=== PATIENT | female | born 1935 | race Caucasian/White ===

== ENCOUNTER 2017-11-10 00:15 | Emergency (ER) | payer MEDICARE, OTHER ==
[~2017-11-10] VITALS: Ht 165.1 cm; Wt 63.5 kg
[~2017-11-10 00:15] MED LIST: AMLO10TA2 PO; DOCU250C30 PO; FLUT16SP2 NS; HYDR25TA4 PO; LISI40TA4 PO; LORA1TAB PO; LUBI24CA5 PO; MIRT45TA6 PO; MULT-1094 PO; SERT100T12 PO; TEMA15CA PO; TRAZ150T75 PO; VENL75TA4 PO; ZOLP5TAB2 PO
--- NOTE | 2017-11-10 00:35 | NUR ---
PT BBRA 860 C/C MECHANICAL GLF WHILE WALKING TO RESTROOM HITTING R SIDE OF FACE, BRUISING NOTED ON R SIDE OF FACE. +KO. +DIZZINESS. +BLURRED VISSION.-N/V. PT STATES SHE HAS BEEN HAVING DIARRHEA X4 DAYS. PT STATES "MY BACK AND NECK ALSO HURT". PT STATES FACIAL PAIN 8/10 NON RADIATING. SKIN WNL. PT DENIES BEING ON BLOOD THINNERS. NO S/S OF ACUTE DISTRESS NOTED. PT PLACED ON ASSOCIATE PROFESSOR OF KINESIOLOGY AND POX. RESP EVEN AND UNLABORED. PT SAFETY AND COMFORT MEAUSRES IN PLACE. MD BEDSIDE FOR EVAL
[2017-11-10] MEDS ORDERED: ESOM40CA PO (00:45)
[2017-11-10] MEDS ORDERED: CLON0.1T PO (00:45)
[2017-11-10] MEDS ORDERED: LORA0.5T PO (00:45)
[2017-11-10] MEDS ORDERED: SUCR1TAB31 PO (00:45)
[2017-11-10] MEDS ORDERED: OXYB10TA PO (00:45)
[2017-11-10] MEDS ORDERED: ATOR10TA PO (00:45)
[2017-11-10] MEDS ORDERED: VENL75CA62 PO (00:45)
[2017-11-10] MEDS ORDERED: VENL150T PO (00:45)
[2017-11-10] MEDS ORDERED: PHEN28OI6 RC (00:45)
[2017-11-10] MEDS ORDERED: TRAZ-214 PO (00:45)
[2017-11-10] MEDS ORDERED: POTA20TA83 PO (00:45)
[2017-11-10] MEDS ORDERED: LEVE500T9 PO (00:45)
[2017-11-10] MEDS ORDERED: CETI10TA14 PO (00:45)
[2017-11-10] MEDS ORDERED: BISA-79 PO (00:45)
[2017-11-10] MEDS ORDERED: ONDA4TAB10 PO (00:45)
[2017-11-10] MEDS ORDERED: PSYL575P5 PO (00:45)
--- NOTE | 2017-11-10 00:49 | NUR ---
PT TO CT
[2017-11-10 00:52] LABS: EOSINOPHILS % (AUTO) 1.8 % (0.0-6.0); HEMATOCRIT 36 % (33-45); HEMOGLOBIN 11.9 g/dL (11.5-14.8); LYMPHOCYTES # (AUTO) 1.4 /CMM (0.8-4.8); LYMPHOCYTES % (AUTO) 20.4 % (20.0-44.0); MEAN CORPUSCULAR HEMOGLOBIN 30 PG (26.0-33.0); MEAN CORPUSCULAR HGB CONC 33 g/dl (31.0-36.0); MEAN CORPUSCULAR VOLUME 92 fL (82-100); MONOCYTES # (AUTO) 0.4 /CMM (0.1-1.30); MONOCYTES % (AUTO) 5.6 % (2.0-12.0); NEUTROPHILS % (AUTO) 72.2 % (43.0-81.0); PLATELET COUNT (AUTO) 329 /CMM (150-450); RDW COEFFICIENT OF VARIATION 14.5 (11.5-15.0); RED BLOOD CELL COUNT(AUTO) 3.93 MIL/uL (4.0-5.2); WHITE BLOOD COUNT (AUTO) 6.9 K/uL (4.3-11.0)
[2017-11-10] MEDS ORDERED: IV NS 0.9% 1,000 ML BAG IV ONE (01:00)
[2017-11-10 01:04] LABS: CALCIUM, SERUM 8.1 mg/dL (8.5-10.1); CARBON DIOXIDE 25 mmol/L (21-32); CHLORIDE 106 mmol/L (98-107); CREATININE 0.8 mg/dL (0.6-1.3); GLUCOSE 91 mg/dL (74-106); SODIUM SERUM 139 mmol/L (136-145); UREA NITROGEN, BLOOD 10 mg/dL (7-18)
[2017-11-10 01:05] LABS: POTASSIUM 2.8 mmol/L (3.5-5.1)
[2017-11-10] MEDS ORDERED: POTASSIUM CHLORIDE 20 MEQ TAB.PRT.SR PO ONE ×2 (01:25→01:30)
--- NOTE | 2017-11-10 01:42 | NUR ---
PT UNABLE TO GIVE URINE SAMPLE. PT REFUSED GARCIA CATH. MADE AWARE
[2017-11-10 02:18] LABS: APPEARANCE,URINE CLEAR (CLEAR); BILIRUBIN,URINE NEGATIVE (NEGATIVE); BLOOD, URINE NEGATIVE Ery/uL (NEGATIVE); COLOR,URINE YELLOW (YELLOW); KETONES,URINE 1+ (NEGATIVE); LEUKOCYTE ESTERASE ,URINE NEGATIVE (NEGATIVE); NITRITE, URINE NEGATIVE (NEGATIVE); PROTEIN,URINE NEGATIVE (NEGATIVE); UGLUCOSE NEGATIVE (NEGATIVE); UROBILINOGEN,URINE 0.2 EU/dL (0.2)
[2017-11-10 02:21] LABS: BACTERIA,URINE None seen /HPF (None Seen); RBC,URINE NONE SEEN /HPF (0-2); WBC,URINE 0-2 /HPF (0-3)
[2017-11-10 02:22] LABS: SQUAMOUS EPITHELIAL CELL,UR Few /HPF (None Seen)
--- NOTE | 2017-11-10 02:55 | NUR ---
report called to [facility]. pt's facility aware of pt going back.
--- NOTE | 2017-11-10 03:01 | NUR ---
[facility] CREW BEDSIDE. REPORT GIVEN TO EMS. PT BEING TRASNFERRED ONTO [facility] GURNEY. NO S/S OF DISTRESS UPON DISCHARGE
--- NOTE | 2017-11-10 03:03 | NUR ---
Patient discharged to home in stable condition. Written and verbal after care instructions given. Patient verbalizes understanding of instruction.IV removed. Catheter intact and site benign. Pressure and 4x4 applied to site. No bleeding noted.
[2017-11-10 03:07] VITALS: BP 135/80
== END 2017-11-10 03:02 | disposition home or self-care (01) ==
LOC: ER 00:17
DX: S09.8XXA Other specified injuries of head, initial encounter (principal); I10 Essential (primary) hypertension; M85.80 Other specified disorders of bone density and structure, unspecified site; M19.90 Unspecified osteoarthritis, unspecified site; F41.9 Anxiety disorder, unspecified; F32.9 Major depressive disorder, single episode, unspecified; E78.00 Pure hypercholesterolemia, unspecified; Z90.89 Acquired absence of other organs; Z98.890 Other specified postprocedural states; Z88.8 Allergy status to other drugs, medicaments and biological substances; Z79.899 Other long term (current) drug therapy; W18.39XA Other fall on same level, initial encounter; Y93.01 Activity, walking, marching and hiking; Y92.89 Other specified places as the place of occurrence of the external cause; Y99.8 Other external cause status
CPT/HCPCS: 36415; 70450; 70486; 72125; 80048; 81001; 85025; 87086; 99285; A4606; J7030; 81000-TC; Z7610

== ENCOUNTER 2017-12-09 04:21 | Inpatient (IN) | payer MEDICARE, OTHER ==
[~2017-12-09] VITALS: Ht 165.1 cm; Wt 55.0 kg
[~2017-12-09 04:21] MED LIST changes: +ATOR10TA PO; +BISA-79 PO; +CETI10TA14 PO; +CLON0.1T PO; +ESOM40CA PO; -HYDR25TA4 PO; +LEVE500T9 PO; +LORA0.5T PO; +ONDA4TAB10 PO; +OXYB10TA PO; +PHEN28OI6 RC; +POTA20TA83 PO; +PSYL575P5 PO; +SUCR1TAB31 PO; +TRAZ-214 PO; -TRAZ150T75 PO; +VENL150T PO; +VENL75CA62 PO; -VENL75TA4 PO; -ZOLP5TAB2 PO
[2017-12-09 05:00] VITALS: BP 171/99
[2017-12-09] MEDS ORDERED: ONDANSETRON HCL/PF 4 MG/2 ML VIAL IV PRN (05:30)
[2017-12-09] MEDS: IV NS 0.9% 1,000 ML IV PRN ×2 (05:53→17:39)
[2017-12-09] MEDS: PANTOPRAZOLE 40 MG VIAL IV SCH (05:53)
[2017-12-09] MEDS: MORPHINE SULFATE INJ 4 MG/ML DISP.SYRIN IV PRN ×2 (05:54→09:50)
--- NOTE | 2017-12-09 07:30 | NUR ---
MS/RN Patient received Patient received from mini shifter, sleeping at this time, appears in no distress. Sitter at bedside due to 51/50 hold. Will continue to monitor and ensure safety.
[2017-12-09] MEDS ORDERED: CLONIDINE HCL 0.1 MG TABLET PO PRN (10:00)
--- NOTE | 2017-12-09 10:00 | NUR ---
MS/RN S/B Dr Perez Seen by Dr Perez - routine labs ordered.
[2017-12-09] MEDS ORDERED: ACETAMINOPHEN 325 MG TABLET PO PRN (10:30)
[2017-12-09] MEDS ORDERED: MAGNESIUM HYDROXIDE 30 ML UDC PO PRN (10:30)
[2017-12-09] MEDS ORDERED: Z GUARD REMEDY 2 OZ OINT TP PRN (10:30)
[2017-12-09] MEDS ORDERED: ONDANSETRON HCL/PF 4 MG/2 ML VIAL IVP PRN (10:30)
[2017-12-09] MEDS ORDERED: MAG HYDROX/AL HYDROX/SIMETH 30 ML UDC PO PRN (10:30)
[2017-12-09] MEDS: DOCUSATE SODIUM 100 MG CAPSULE PO SCH ×2 (10:56→17:39)
[2017-12-09] MEDS: AMLODIPINE BESYLATE 10 MG TABLET PO SCH (10:59)
[2017-12-09] MEDS: LISINOPRIL (20MG) 20 MG TABLET PO SCH (11:01)
[2017-12-09] MEDS ORDERED: ONDANSETRON 4 MG TAB.RAPDIS PO PRN (11:30)
[2017-12-09] MEDS ORDERED: PHENYLEPHRINE/SHK LV/MO/PET,WH 30 GM TUBE RC PRN (11:30)
[2017-12-09] MEDS ORDERED: NITR100C15 PO (11:39)
--- NOTE | 2017-12-09 12:00 | NUR ---
MS/shove up contact information Taran (son) -
[2017-12-09] MEDS ORDERED: SUCRALFATE 1 G TABLET PO SCH (13:00)
[2017-12-09] MEDS ORDERED: BISACODYL (5 MG) 5 MG TABLET.DR PO SCH (17:00)
[2017-12-09] MEDS ORDERED: FLUTICASONE PROPIONATE 16 GM BOTTLE NS SCH (17:00)
--- NOTE | 2017-12-09 18:09 | NUR ---
MS/RN End note Patient remains in stable condition, all needs attended. Sitter at bedside for safety.
[2017-12-09 19:40] VITALS: BP 132/68
--- NOTE | 2017-12-09 19:57 | NUR ---
RECIEVED PT ALERT AND ORIENTATED SPEECH CLEAR MOVING ALL EXTREMITIES IV INFUSING RIGHT ARM GOOD EYE CONTACT SPEECH CLEAR MOVING ALL EXTREMITIES
[2017-12-09] MEDS: TEMAZEPAM 15 MG CAPSULE PO SCH (21:29)
[2017-12-09] MEDS: TRAZODONE 50 MG TABLET PO SCH (21:29)
[2017-12-09] MEDS: MIRTAZAPINE 15 MG TABLET PO SCH (21:30)
[2017-12-09] MEDS: ARIPIPRAZOLE 5 MG TABLET PO SCH (21:30)
[2017-12-09] MEDS: LEVETIRACETAM (250 MG) 250 MG TABLET PO SCH (21:30)
[2017-12-09] MEDS ORDERED: MIRTAZAPINE SOLUTAB 45 MG/UDTABLET TAB.RAPDIS PO SCH (22:00)
[2017-12-09] MEDS ORDERED: ATORVASTATIN 10 MG TABLET PO SCH (22:00)
[2017-12-10] MEDS: PANTOPRAZOLE 40 MG VIAL IV SCH (05:28)
[2017-12-10] MEDS: IV NS 0.9% 1,000 ML IV PRN (05:29)
--- NOTE | 2017-12-10 05:57 | NUR ---
ENDING NOTES SITTER AT THE BEDSIDE THIS 12HOURS FOR HER SAFETY. AROPUSES EASILY AND ALERT SPEECH CLEAR. EREQUENTLY SMILING SHE IS COOPERATIVE
[2017-12-10 07:00] LABS: BASOPHILS % (AUTO) 0.3 % (0.0-2.0); EOSINOPHILS % (AUTO) 2.1 % (0.0-6.0); HEMATOCRIT 37 % (33-45); HEMOGLOBIN 12.1 g/dL (11.5-14.8); LYMPHOCYTES # (AUTO) 1.9 /CMM (0.8-4.8); LYMPHOCYTES % (AUTO) 17.3 % (20.0-44.0); MEAN CORPUSCULAR HEMOGLOBIN 30 PG (26.0-33.0); MEAN CORPUSCULAR HGB CONC 33 g/dl (31.0-36.0); MEAN CORPUSCULAR VOLUME 92 fL (82-100); MONOCYTES # (AUTO) 0.7 /CMM (0.1-1.30); MONOCYTES % (AUTO) 5.8 % (2.0-12.0); NEUTROPHILS # (AUTO) 8.3 /CMM (1.8-8.9); NEUTROPHILS % (AUTO) 74.5 % (43.0-81.0); PLATELET COUNT (AUTO) 348 /CMM (150-450); RED BLOOD CELL COUNT(AUTO) 4.01 MIL/uL (4.0-5.2); WHITE BLOOD COUNT (AUTO) 11.1 K/uL (4.3-11.0)
[2017-12-10 07:31] LABS: CALCIUM, SERUM 8.6 mg/dL (8.5-10.1); CARBON DIOXIDE 24 mmol/L (21-32); CHLORIDE 106 mmol/L (98-107); CREATININE 0.6 mg/dL (0.6-1.3); GLUCOSE 95 mg/dL (74-106); MAGNESIUM 1.4 mg/dL (1.8-2.4); PHOSPHORUS 3.8 mg/dL (2.5-4.9); POTASSIUM 3.4 mmol/L (3.5-5.1); SODIUM SERUM 142 mmol/L (136-145); UREA NITROGEN, BLOOD 10 mg/dL (7-18)
[2017-12-10 08:00] VITALS: BP 151/53
--- NOTE | 2017-12-10 08:21 | NUR ---
RN NOTES PATIENT A/OX3, VERBALLY RESPONSIVE, NO DISTRESS NOTED, PATIENT REFUSING TO EAT HER CLEAR LIQUID, PATIENT DID C/O BURNING WHILE URINATING, WILL INFORM MD. NEEDS ATTENDED, SITTER AT BEDSIDE, CALL LIGHT WITHIN REACH, WILL CONTINUE TO MONITOR.
[2017-12-10] MEDS ORDERED: cetrizine 10 MG TABLET PO SCH (09:00)
[2017-12-10] MEDS ORDERED: POTASSIUM CHLORIDE 20 MEQ TAB.PRT.SR PO SCH ×2 (09:00→12:00)
[2017-12-10] MEDS ORDERED: OXYBUTYNIN CHLORIDE ER 5 MG TAB PO SCH (09:00)
[2017-12-10] MEDS ORDERED: LORAZEPAM 0.5 MG TABLET PO PRN (09:00)
[2017-12-10] MEDS ORDERED: Medication Not On Formulary EA (Esomeprazole Mag Trihydrate (Nexium) 40 MG) PO SCH (09:00)
[2017-12-10] MEDS ORDERED: VENLAFAXINE XR 75 MG CAP.SR.24H PO SCH (09:00)
[2017-12-10] MEDS ORDERED: MULTIVIT, IRON, MIN NO. 8, FA 1 TAB PO SCH (09:00)
[2017-12-10] MEDS: PSYLLIUM SEED 1 PKT PACKET PO SCH (09:00)
[2017-12-10] MEDS: DOCUSATE SODIUM 100 MG CAPSULE PO SCH ×2 (09:44→16:57)
[2017-12-10] MEDS: LISINOPRIL (20MG) 20 MG TABLET PO SCH (09:45)
[2017-12-10] MEDS: AMLODIPINE BESYLATE 10 MG TABLET PO SCH (09:45)
[2017-12-10] MEDS: LEVETIRACETAM (250 MG) 250 MG TABLET PO SCH ×2 (09:45→22:09)
[2017-12-10] MEDS: Magnesium 1GM/D5W 100ML PREMIX 100 ML IV SCH ×4 (12:19→15:28)
[2017-12-10 12:56] LABS: APPEARANCE,URINE SL CLOUDY (CLEAR); BILIRUBIN,URINE 1+ (NEGATIVE); BLOOD, URINE TRACE Ery/uL (NEGATIVE); COLOR,URINE YELLOW (YELLOW); KETONES,URINE 2+ (NEGATIVE); LEUKOCYTE ESTERASE ,URINE NEGATIVE (NEGATIVE); NITRITE, URINE NEGATIVE (NEGATIVE); PROTEIN,URINE 1+ mg/dl (NEGATIVE); UGLUCOSE NEGATIVE (NEGATIVE); UROBILINOGEN,URINE 0.2 EU/dL (0.2)
[2017-12-10 13:07] LABS: BACTERIA,URINE Rare /HPF (None Seen); SQUAMOUS EPITHELIAL CELL,UR Few /HPF (None Seen)
[2017-12-10] MEDS ORDERED: POTASSIUM CHLORIDE 20 MEQ POWDER PACKET PO SCH (14:30)
[2017-12-10 18:18] VITALS: BP 142/77
--- NOTE | 2017-12-10 18:47 | NUR ---
RN NOTES PATIENT A/OX1, BREATHING EVEN AND UNLABORED, NO SOB NOTED, SKIN CARE RENDERED, IVF INFUSING AND TOLERATING WELL, CALL LIGHT WITHIN REACH, WILL ENDORSE TO BUTADIENE CONVERTER OPERATOR FOR MIKEY.
--- NOTE | 2017-12-10 19:15 | NUR ---
MS RN NOTES RECEIVED PT IN BED, ASLEEP AT THIS TIME, AROUSES EASILY, A/O X 4, VERBALLY RESPONSIVE. NO DISTRESS , NO SOB NOTED. RESPIRATION IS EVEN AND UNLABORED. SITTER AT BEDSIDE OR SAFETY, PT ON 5150 HOLD. IV SITE ON RFA INTACT AND PATENT, NO S/S OF INFILTRATION NOTED. IVF INFUSING WELL. NO C/O PAIN OR DISCOMFORT AT THIS TIME. SAFETY PRECAUTIONS OBSERVED. ALL NEEDS ATTENDED AND MET. WILL CONT TO MONITOR.
[2017-12-10 20:00] VITALS: BP 134/80
--- NOTE | 2017-12-10 21:29 | NUR ---
PT REFUSED SLEEPING PILL RESTORIL, PT VERBALIZED THAT SHE DOESN'T NEED IT, ALSO VERBALIZED " GO AWAY" , RISK AND BENEFITS EXPLAINED , PT STILL REFUSED X 3. WILL CONT TO MONITOR.
[2017-12-10] MEDS: TEMAZEPAM 15 MG CAPSULE PO SCH (22:00)
[2017-12-10] MEDS: ARIPIPRAZOLE 5 MG TABLET PO SCH (22:09)
[2017-12-10] MEDS: MIRTAZAPINE 15 MG TABLET PO SCH (22:10)
[2017-12-10] MEDS: SERTRALINE HCL 50 MG TABLET PO SCH (22:10)
[2017-12-10] MEDS: TRAZODONE 50 MG TABLET PO SCH (22:11)
[2017-12-11] MEDS: IV NS 0.9% 1,000 ML IV PRN (00:41)
[2017-12-11] MEDS: HYDROCODONE/APAP 5/325MG 1 EACH TABLET PO PRN ×2 (00:41→10:54)
[2017-12-11] MEDS: PANTOPRAZOLE 40 MG VIAL IV SCH (05:40)
--- NOTE | 2017-12-11 06:35 | NUR ---
MS RN CLOSING NOTES PT IN BED, RESTING COMFORTABLY, AROUSES EASILY, A/O X 4, VERBALLY RESPONSIVE. NO DISTRESS , NO SOB NOTED. RESPIRATION IS EVEN AND UNLABORED. PT ON 5150 HOLD, SITTER AT BEDSIDE FOR SAFETY. IV SITE ON RFA INTACT AND PATENT, NO S/S OF INFILTRATION NOTED. IVF INFUSING WELL. NO C/O PAIN OR DISCOMFORT AT THIS TIME. SAFETY PRECAUTIONS OBSERVED. ALL NEEDS ATTENDED AND MET. WILL ENDORSE TO NEXT SHIFT FOR MIKEY.
[2017-12-11 07:00] LABS: CALCIUM, SERUM 8.3 mg/dL (8.5-10.1); CARBON DIOXIDE 26 mmol/L (21-32); CHLORIDE 101 mmol/L (98-107); CREATININE 0.5 mg/dL (0.6-1.3); GLUCOSE 144 mg/dL (74-106); MAGNESIUM 1.5 mg/dL (1.8-2.4); POTASSIUM 3.1 mmol/L (3.5-5.1); SODIUM SERUM 138 mmol/L (136-145); UREA NITROGEN, BLOOD 5 mg/dL (7-18)
[2017-12-11] MEDS ORDERED: POTASSIUM CHLORIDE 20 MEQ TAB.PRT.SR PO ONE ×2 (07:30→09:00)
--- NOTE | 2017-12-11 07:45 | NUR ---
MS RN OPENING NOTES RECEIVED PT LAYING IN BED WITH HOB ELEVATED. PT IS ALERT AND RESPONSIVE. RESPIRATIONS ARE EVEN AND UNLABORED, NOT IN ANY ACUTE DISTRESS NOTED. NO FACIAL GRIMACING OR MOANING NOTED. IV ACCESS TO RFA INTACT, NO INFILTRATION NOTED FOR SAFETY. WILL CONTINUE TO MONITOR THROUGHOUT SHIFT FOR CONTINUITY OF CARE.
[2017-12-11] MEDS: LEVETIRACETAM (250 MG) 250 MG TABLET PO SCH ×2 (08:53→21:26)
[2017-12-11] MEDS: PSYLLIUM SEED 1 PKT PACKET PO SCH (08:53)
[2017-12-11] MEDS: LISINOPRIL (20MG) 20 MG TABLET PO SCH (08:53)
[2017-12-11] MEDS: AMLODIPINE BESYLATE 10 MG TABLET PO SCH (08:53)
[2017-12-11] MEDS: DOCUSATE SODIUM 100 MG CAPSULE PO SCH ×2 (08:53→16:22)
[2017-12-11] MEDS: Magnesium 1GM/D5W 100ML PREMIX 100 ML IV SCH ×2 (09:12→10:18)
--- NOTE | 2017-12-11 18:29 | NUR ---
MS RN CLOSING NOTES ALL DUE MEDS GIVEN, NEEDS MET AND RENDERED. PT IS ALERT AND RESPONSIVE, AFEBRILE. RESPIRATIONS ARE EVEN AND UNLABORED, NOT IN ANY ACUTE DISTRESS NOTED. PT DENIES ANY PAIN AT THIS TIME, NO C/O SOB, N/V. IV SITE TO RFA INTACT, NO INFILTRATION NOTED. DRESSING KEPT CLEAN AND DRY. REPOSITIONED PER PROTOCOL W/ SITTER AT BEDSIDE. SAFETY MEASURES ARE IN PLACE. WILL ENDORSE TO NEXT SHIFT FOR CONTINUITY OF CARE.
--- NOTE | 2017-12-11 19:18 | NUR ---
MS RN NOTES RECEIVED PT IN BED, ASLEEP AT THIS TIME, AROUSES EASILY, A/O X 2-3, VERBALLY RESPONSIVE. NO DISTRESS , NO SOB NOTED. RESPIRATION IS EVEN AND UNLABORED. SITTER AT BEDSIDE OR SAFETY. IV SITE ON RIGHT WRIST INTACT AND PATENT, NO S/S OF INFILTRATION NOTED. IVF INFUSING WELL. NO C/O PAIN OR DISCOMFORT AT THIS TIME. SAFETY PRECAUTIONS OBSERVED. ALL NEEDS ATTENDED AND MET. WILL CONT TO MONITOR. Addendum: 12/11/17 at 2035 by BUSTER YARBROUGH RN INCORRECT IV SITE DOCUMENTATION.
--- NOTE | 2017-12-11 19:18 | NUR ---
MS RN NOTES RECEIVED PT IN BED, ASLEEP AT THIS TIME, AROUSES EASILY, A/O X 2-3, VERBALLY RESPONSIVE. NO DISTRESS , NO SOB NOTED. RESPIRATION IS EVEN AND UNLABORED. SITTER AT BEDSIDE OR SAFETY. IV SITE ON RFA INTACT AND PATENT, NO S/S OF INFILTRATION NOTED. IVF INFUSING WELL. NO C/O PAIN OR DISCOMFORT AT THIS TIME. SAFETY PRECAUTIONS OBSERVED. ALL NEEDS ATTENDED AND MET. WILL CONT TO MONITOR.
[2017-12-11 20:00] VITALS: BP 147/95
[2017-12-11] MEDS: ARIPIPRAZOLE 5 MG TABLET PO SCH (21:24)
[2017-12-11] MEDS: TEMAZEPAM 15 MG CAPSULE PO SCH (21:24)
[2017-12-11] MEDS: MIRTAZAPINE 15 MG TABLET PO SCH (21:24)
[2017-12-11] MEDS: SERTRALINE HCL 50 MG TABLET PO SCH (21:25)
[2017-12-11] MEDS: TRAZODONE 50 MG TABLET PO SCH (21:26)
[2017-12-12] MEDS: PANTOPRAZOLE 40 MG VIAL IV SCH (05:44)
--- NOTE | 2017-12-12 06:31 | NUR ---
MS RN CLOSING NOTES PT IN BED, AWAKE, A/O X 2-3, VERBALLY RESPONSIVE. NO DISTRESS , NO SOB NOTED. RESPIRATION IS EVEN AND UNLABORED. SITTER AT BEDSIDE OR SAFETY. IV SITE ON RFA INTACT AND PATENT, NO S/S OF INFILTRATION NOTED. IVF INFUSING WELL. DENIES ANY PAIN OR DISCOMFORT AT THIS TIME. SAFETY PRECAUTIONS OBSERVED. ALL NEEDS ATTENDED AND MET. WILL ENDORSE TO EXT SHIFT FOR MIKEY.
--- NOTE | 2017-12-12 08:00 | NUR ---
RN NOTES PATIENT A/OX2-3, EATING BREAKFAST, SITTER AT BEDSIDE, NEEDS ATTENDED AND MET, CALL LIGHT WITHIN REACH, WILL CONTINUE TO MONITOR.
[2017-12-12 08:31] VITALS: BP 144/82
[2017-12-12] MEDS: DOCUSATE SODIUM 100 MG CAPSULE PO SCH ×2 (09:05→16:45)
[2017-12-12] MEDS: PSYLLIUM SEED 1 PKT PACKET PO SCH (09:05)
[2017-12-12] MEDS: LEVETIRACETAM (250 MG) 250 MG TABLET PO SCH (09:05)
[2017-12-12] MEDS: LISINOPRIL (20MG) 20 MG TABLET PO SCH (09:06)
[2017-12-12] MEDS: AMLODIPINE BESYLATE 10 MG TABLET PO SCH (09:06)
[2017-12-12 09:24] LABS: BASOPHILS # (AUTO) 0.1 /CMM (0.0-0.2); BASOPHILS % (AUTO) 0.5 % (0.0-2.0); EOSINOPHILS % (AUTO) 0.4 % (0.0-6.0); HEMATOCRIT 39 % (33-45); HEMOGLOBIN 12.5 g/dL (11.5-14.8); LYMPHOCYTES # (AUTO) 2.5 /CMM (0.8-4.8); LYMPHOCYTES % (AUTO) 16.7 % (20.0-44.0); MEAN CORPUSCULAR HEMOGLOBIN 29 PG (26.0-33.0); MEAN CORPUSCULAR HGB CONC 32 g/dl (31.0-36.0); MEAN CORPUSCULAR VOLUME 91 fL (82-100); MONOCYTES # (AUTO) 0.8 /CMM (0.1-1.30); MONOCYTES % (AUTO) 5.5 % (2.0-12.0); NEUTROPHILS # (AUTO) 11.7 /CMM (1.8-8.9); NEUTROPHILS % (AUTO) 76.9 % (43.0-81.0); PLATELET COUNT (AUTO) 382 /CMM (150-450); RDW COEFFICIENT OF VARIATION 15.7 (11.5-15.0); RED BLOOD CELL COUNT(AUTO) 4.28 MIL/uL (4.0-5.2); WHITE BLOOD COUNT (AUTO) 15.2 K/uL (4.3-11.0)
[2017-12-12 09:38] LABS: CALCIUM, SERUM 9.3 mg/dL (8.5-10.1); CARBON DIOXIDE 28 mmol/L (21-32); CHLORIDE 101 mmol/L (98-107); CREATININE 0.7 mg/dL (0.6-1.3); GLUCOSE 146 mg/dL (74-106); MAGNESIUM 1.8 mg/dL (1.8-2.4); PHOSPHORUS 3.2 mg/dL (2.5-4.9); POTASSIUM 3.9 mmol/L (3.5-5.1); SODIUM SERUM 138 mmol/L (136-145); UREA NITROGEN, BLOOD 10 mg/dL (7-18)
[2017-12-12] MEDS ORDERED: MIRT15TA PO (09:46)
[2017-12-12] MEDS ORDERED: ARIP5TAB10 PO (09:46)
[2017-12-12 16:55] VITALS: BP 134/78
--- NOTE | 2017-12-12 18:13 | NUR ---
ERECTING CRANE OPERATOR PATIENT A/OX2-3, SLEEPING BUT RESPONSIVE TO VERBAL STIMULI, PATIENT REFUSED TO EAT LUNCH. UA SENT TO LAB ORDERED BY DR. CROWDER. SKIN ASSESSMENT DONE, SKIN CLEAR AND INTACT, BELONGINGS RECONCILED AND COMPLETE, PATIENT IN NO DISTRESS, NO S/SX OF PAIN OR DISCOMCORT AT THIS TIME, PIV REMOVED, APPLIED GAUZE AND TAPE, ALL BELONGINGS TRANSFERRED TO GPS. PATIENT TRANSFERRED TO GPS VIA BED. REPORT GIVEN TO JESSE. Addendum: 12/12/17 at 1821 by CINDY TOSCANO RN ADDENDUM: INFORMED DR. TIRADO, PER DR. TIRADO UA WAS DONE AND WAS NEGATIVE. OK TO DISCHARGE PATIENT PER
[2017-12-12] MEDS ORDERED: PSYL1PAC8 PO (18:44)
[2017-12-12] MEDS ORDERED: ARIP10TA9 PO (18:44)
[2017-12-12] MEDS ORDERED: PANT40VI IV (18:44)
[2017-12-12] MEDS ORDERED: MORP4VIA IV (18:44)
[2017-12-12] MEDS ORDERED: MIRT7.5T10 PO (18:44)
[2017-12-12] MEDS ORDERED: ALLA266C2 TP (18:44)
[2017-12-12] MEDS ORDERED: ONDA4VIA30 IV (18:44)
[2017-12-12] MEDS ORDERED: HYDR-552 PO (18:44)
[2017-12-12] MEDS ORDERED: MAG30ORA PO (18:44)
[2017-12-12] MEDS ORDERED: MAGN400O6 PO (18:44)
[2017-12-12] MEDS ORDERED: ACET-868 PO (18:44)
== END 2017-12-12 18:10 | DRG 394 ==
LOC: MEDSG2 04:21
PROVIDERS: ADMIT Nurse Practitioner Acute Care; ATTEND Nurse Practitioner Acute Care
DX: K64.8 Other hemorrhoids (principal); E44.0 Moderate protein-calorie malnutrition; F33.2 Major depressive disorder, recurrent severe without psychotic features; E78.5 Hyperlipidemia, unspecified; F03.90 Unspecified dementia, unspecified severity, without behavioral disturbance, psychotic disturbance, mood disturbance, and anxiety; I10 Essential (primary) hypertension; K21.9 Gastro-esophageal reflux disease without esophagitis; G40.909 Epilepsy, unspecified, not intractable, without status epilepticus; F29 Unspecified psychosis not due to a substance or known physiological condition; M19.90 Unspecified osteoarthritis, unspecified site; E88.09 Other disorders of plasma-protein metabolism, not elsewhere classified; M62.50 Muscle wasting and atrophy, not elsewhere classified, unspecified site; M48.02 Spinal stenosis, cervical region; Z68.20 Body mass index [BMI] 20.0-20.9, adult; K57.30 Diverticulosis of large intestine without perforation or abscess without bleeding; K82.8 Other specified diseases of gallbladder
CPT/HCPCS: 36415; 76700-TC; 80048-TC; 81000-TC; 83735-TC; 84100-TC; 85025-TC; 87081-TC; C9113; J2270; J2405; J3475; J7030; Z7610

== ENCOUNTER 2017-12-12 18:31 | Inpatient (IN) | payer MEDICARE, OTHER ==
[~2017-12-12] VITALS: Ht 165.1 cm; Wt 53.5 kg
[~2017-12-12 18:31] MED LIST changes: -AMLO10TA2 PO; +AMLO10TA6 PO; +ARIP5TAB10 PO; -ATOR10TA PO; -BISA-79 PO; -CETI10TA14 PO; -CLON0.1T PO; -ESOM40CA PO; -FLUT16SP2 NS; -LORA1TAB PO; -LUBI24CA5 PO; +MIRT15TA PO; -MIRT45TA6 PO; -MULT-1094 PO; +NITR100C15 PO; -ONDA4TAB10 PO; -OXYB10TA PO; -PHEN28OI6 RC; -POTA20TA83 PO; -PSYL575P5 PO; -SUCR1TAB31 PO; -VENL150T PO; -VENL75CA62 PO
--- NOTE | 2017-12-12 18:38 | NUR ---
GPS/RN RECEIVED PT FROM 2W ON 525 NO ACUTE DISTRESS NOTED. PROPERTY CHECKED FOR CONTRABAND. NO SI OR HI AT THE TIME OF ADMISSION. DR CROWDER MADE AWARE OF ADMISSION WITH NEW ORDERS RECEIVED AND CARRIED OUT. WILL ENDORSE TO WEATHER REPORTER TO CONTINUE WITH ADMISSION.
[2017-12-12] MEDS ORDERED: ALLA266C2 TP (18:44)
[2017-12-12] MEDS ORDERED: ARIP10TA9 PO (18:44)
[2017-12-12] MEDS ORDERED: MORP4VIA IV (18:44)
[2017-12-12] MEDS ORDERED: PANT40VI IV (18:44)
[2017-12-12] MEDS ORDERED: ONDA4VIA52 IV (18:44)
[2017-12-12] MEDS ORDERED: MAG30ORA PO (18:44)
[2017-12-12] MEDS ORDERED: MAGN400O6 PO (18:44)
[2017-12-12] MEDS ORDERED: HYDR-552 PO (18:44)
[2017-12-12] MEDS ORDERED: ACET-868 PO (18:44)
[2017-12-12] MEDS ORDERED: MIRT7.5T10 PO (18:44)
[2017-12-12] MEDS ORDERED: PSYL1PAC8 PO (18:44)
--- NOTE | 2017-12-12 18:50 | NUR ---
DR. CROWDER MADE AWARE OF THE ADMISSION AND GAVE ORDERS.
[2017-12-12 18:54] VITALS: BP 148/79
[2017-12-12] MEDS ORDERED: TRAZODONE 50 MG TABLET PO PRN (19:00)
[2017-12-12] MEDS ORDERED: MAG HYDROX/AL HYDROX/SIMETH 30 ML UDC PO PRN ×2 (19:00→21:00)
[2017-12-12] MEDS ORDERED: MAGNESIUM HYDROXIDE 30 ML UDC PO PRN ×2 (19:00→21:00)
--- NOTE | 2017-12-12 19:40 | NUR ---
Admitted an 82 y/o Female from med surg, on 5150 hold, per hold, patient has poor appetite, verbalizing suicidal ideation on and off. Admitting dx. of Depression. Medical history of hypertension, dementia, hyperlipidemia, anxiety/depression, seizure disorder, GERD, hemorrhoids. Has allergy to mometasone furoate. Received patient at bed, alert and oriented x 2-3, disorganized, calm, cooperative, denies si/hi, head to toe assessment done, picture done. No sob, no acute distress, breathing even and unlabored, denies pain and discomfort. Contraband checking done by the previous shift. Notified SLIDE FORMING MACHINE TENDER Cory Yang to reconcile medication. Kept clean, dry and comfortable. Will continue to monitor. Addendum: 12/13/17 at 0327 by BIJAL GARNER II, RN Patient is on 5250 hold and under the care of the DR. Dia. Dr. Dia is aware of the admission. Will continue to monitor
[2017-12-12 20:00] VITALS: BP 155/83
[2017-12-12] MEDS ORDERED: ONDANSETRON HCL 4 MG/5 ML SOLUTION PO PRN (21:00)
[2017-12-12] MEDS ORDERED: ACETAMINOPHEN 325 MG TABLET PO PRN (21:00)
[2017-12-12] MEDS ORDERED: Medication Not On Formulary EA (Levetiracetam (Keppra) 500 MG) PO SCH (21:00)
[2017-12-12] MEDS ORDERED: MORPHINE SULFATE 4 MG IV PRN (21:00)
[2017-12-12] MEDS ORDERED: Z GUARD REMEDY 2 OZ OINT TP PRN (21:00)
[2017-12-12] MEDS: SERTRALINE HCL 50 MG TABLET PO SCH (21:50)
[2017-12-12] MEDS: ARIPIPRAZOLE 5 MG TABLET PO SCH (21:51)
[2017-12-12] MEDS: MIRTAZAPINE 15 MG TABLET PO SCH (21:51)
[2017-12-12] MEDS: PANTOPRAZOLE 40 MG TABLET.DR PO SCH (21:51)
[2017-12-12] MEDS ORDERED: TRAZODONE 50 MG TABLET PO SCH (22:00)
[2017-12-12] MEDS ORDERED: MORPHINE SULFATE INJ 4 MG/ML DISP.SYRIN IV PRN (22:30)
[2017-12-12] MEDS ORDERED: LEVETIRACETAM (250 MG) 250 MG TABLET PO ONE (22:30)
[2017-12-13] MEDS: ACETAMINOPHEN 325 MG TABLET PO PRN (05:54)
[2017-12-13 07:36] LABS: CREATININE 0.6 mg/dL (0.6-1.3)
[2017-12-13 07:41] LABS: CALCIUM, SERUM 9.2 mg/dL (8.5-10.1); CARBON DIOXIDE 26 mmol/L (21-32); CHLORIDE 99 mmol/L (98-107); CREATININE 0.6 mg/dL (0.6-1.3); GLUCOSE 131 mg/dL (74-106); MAGNESIUM 1.6 mg/dL (1.8-2.4); PHOSPHORUS 4.1 mg/dL (2.5-4.9); POTASSIUM 3.4 mmol/L (3.5-5.1); SODIUM SERUM 137 mmol/L (136-145); UREA NITROGEN, BLOOD 9 mg/dL (7-18)
[2017-12-13 07:48] LABS: APPEARANCE,URINE CLEAR (CLEAR); BILIRUBIN,URINE NEGATIVE (NEGATIVE); BLOOD, URINE 2+ Ery/uL (NEGATIVE); COLOR,URINE YELLOW (YELLOW); KETONES,URINE TRACE (NEGATIVE); LEUKOCYTE ESTERASE ,URINE NEGATIVE (NEGATIVE); NITRITE, URINE POSITIVE (NEGATIVE); PROTEIN,URINE NEGATIVE (NEGATIVE); UGLUCOSE NEGATIVE (NEGATIVE); UROBILINOGEN,URINE 0.2 EU/dL (0.2)
[2017-12-13 07:50] LABS: BASOPHILS % (AUTO) 0.1 % (0.0-2.0); EOSINOPHILS % (AUTO) 0.3 % (0.0-6.0); HEMATOCRIT 39 % (33-45); HEMOGLOBIN 12.3 g/dL (11.5-14.8); LYMPHOCYTES # (AUTO) 2.4 /CMM (0.8-4.8); LYMPHOCYTES % (AUTO) 15.3 % (20.0-44.0); MEAN CORPUSCULAR HEMOGLOBIN 29 PG (26.0-33.0); MEAN CORPUSCULAR HGB CONC 32 g/dl (31.0-36.0); MEAN CORPUSCULAR VOLUME 92 fL (82-100); MONOCYTES % (AUTO) 6.2 % (2.0-12.0); NEUTROPHILS # (AUTO) 12.1 /CMM (1.8-8.9); NEUTROPHILS % (AUTO) 78.1 % (43.0-81.0); PLATELET COUNT (AUTO) 360 /CMM (150-450); RDW COEFFICIENT OF VARIATION 15.6 (11.5-15.0); WHITE BLOOD COUNT (AUTO) 15.5 K/uL (4.3-11.0)
[2017-12-13 07:52] LABS: CHOLESTEROL 163 mg/dL (<200); HDL CHOLESTEROL 47 mg/dL (40-60); LDL 94 mg/dL (0-99); THYROID STIMULATING HORMONE 1.692 uIU/mL (0.358-3.74); TRIGLYCERIDES 52 mg/dL (30-150)
[2017-12-13 08:00] VITALS: BP 136/66
[2017-12-13] MEDS ORDERED: ONDANSETRON 4 MG TAB.RAPDIS PO PRN (08:00)
[2017-12-13] MEDS ORDERED: LISINOPRIL (20MG) 20 MG TABLET PO SCH (09:00)
[2017-12-13] MEDS: LEVETIRACETAM (250 MG) 250 MG TABLET PO SCH ×2 (09:07→17:07)
[2017-12-13] MEDS: DOCUSATE SODIUM 250 MG CAPSULE PO SCH ×2 (09:07→17:07)
[2017-12-13] MEDS: LISINOPRIL (20MG) 20 MG TABLET PO SCH (09:08)
[2017-12-13] MEDS: PANTOPRAZOLE 40 MG TABLET.DR PO SCH ×2 (09:08→21:53)
[2017-12-13] MEDS: AMLODIPINE BESYLATE 10 MG TABLET PO SCH (09:08)
[2017-12-13] MEDS: PSYLLIUM SEED 1 PKT PACKET PO SCH (09:08)
[2017-12-13 09:40] LABS: BACTERIA,URINE 4+ /HPF (None Seen); SQUAMOUS EPITHELIAL CELL,UR Few /HPF (None Seen)
[2017-12-13] MEDS ORDERED: MAGNESIUM OXIDE 400 MG TABLET PO ONE (10:00)
[2017-12-13] MEDS ORDERED: POTASSIUM CHLORIDE 20 MEQ TAB.PRT.SR PO ONE (10:00)
[2017-12-13 10:55] LABS: ALANINE AMINOTRANSFERASE 16 U/L (12-78); ALBUMIN 2.7 g/dL (3.4-5.0); ALKALINE PHOSPHATASE 84 U/L (46-116); ASPARTATE AMINOTRANSFERASE 33 U/L (15-37); BILIRUBIN,DIRECT 0.1 mg/dL (0.0-0.2); BILIRUBIN,TOTAL 0.4 mg/dL (0.2-1.0); TOTAL PROTEIN, SERUM 7.5 g/dL (6.4-8.2)
[2017-12-13] MEDS: CEPHALEXIN MONOHYDRATE 500 MG CAPSULE PO SCH ×2 (12:01→21:54)
[2017-12-13 16:00] VITALS: BP 140/94
[2017-12-13] MEDS ORDERED: ENSURE ENLIVE 237 ML LIQUID (VANILLA) PO SCH (17:00)
[2017-12-13] MEDS: ENSURE ENLIVE CHOC 237 ML CAN PO SCH (17:07)
[2017-12-13 20:00] VITALS: BP 137/64
[2017-12-13] MEDS: ARIPIPRAZOLE 5 MG TABLET PO SCH (21:52)
[2017-12-13] MEDS: MIRTAZAPINE 15 MG TABLET PO SCH (21:53)
[2017-12-13] MEDS: SERTRALINE HCL 50 MG TABLET PO SCH (21:53)
[2017-12-14 08:00] VITALS: BP 135/91
[2017-12-14] MEDS: LEVETIRACETAM (250 MG) 250 MG TABLET PO SCH ×2 (08:32→16:20)
[2017-12-14] MEDS: DOCUSATE SODIUM 250 MG CAPSULE PO SCH ×2 (08:32→16:20)
[2017-12-14] MEDS: ENSURE ENLIVE CHOC 237 ML CAN PO SCH ×3 (08:32→16:20)
[2017-12-14] MEDS: AMLODIPINE BESYLATE 10 MG TABLET PO SCH (08:33)
[2017-12-14] MEDS: LISINOPRIL (20MG) 20 MG TABLET PO SCH (08:33)
[2017-12-14] MEDS: PSYLLIUM SEED 1 PKT PACKET PO SCH (08:33)
[2017-12-14] MEDS: CEPHALEXIN MONOHYDRATE 500 MG CAPSULE PO SCH ×2 (08:33→21:24)
[2017-12-14] MEDS: PANTOPRAZOLE 40 MG TABLET.DR PO SCH ×2 (08:34→21:25)
[2017-12-14 16:00] VITALS: BP 130/81
[2017-12-14 19:52] VITALS: BP 140/80
[2017-12-14 20:00] VITALS: BP 140/80
[2017-12-14] MEDS: SERTRALINE HCL 50 MG TABLET PO SCH (21:26)
[2017-12-14] MEDS: ARIPIPRAZOLE 5 MG TABLET PO SCH (21:26)
[2017-12-14] MEDS: MIRTAZAPINE 15 MG TABLET PO SCH (21:27)
[2017-12-15] MEDS: ENSURE ENLIVE CHOC 237 ML CAN PO SCH ×3 (08:00→17:19)
[2017-12-15 08:38] VITALS: BP 155/82
[2017-12-15] MEDS: LEVETIRACETAM (250 MG) 250 MG TABLET PO SCH ×2 (09:36→17:19)
[2017-12-15] MEDS: LISINOPRIL (20MG) 20 MG TABLET PO SCH (09:36)
[2017-12-15] MEDS: AMLODIPINE BESYLATE 10 MG TABLET PO SCH (09:37)
[2017-12-15] MEDS: PSYLLIUM SEED 1 PKT PACKET PO SCH (09:37)
[2017-12-15] MEDS: DOCUSATE SODIUM 250 MG CAPSULE PO SCH ×2 (09:37→17:19)
[2017-12-15] MEDS: PANTOPRAZOLE 40 MG TABLET.DR PO SCH ×2 (09:48→21:57)
[2017-12-15] MEDS: CEPHALEXIN MONOHYDRATE 500 MG CAPSULE PO SCH ×2 (09:48→21:57)
--- NOTE | 2017-12-15 11:27 | NUR ---
HOSEA called the pt's son, Taran ([phone]), and discussed the initial discharge plan which consisted of the pt being discharged to [facility].
--- NOTE | 2017-12-15 12:21 | NUR ---
Initial Discharge Plan: Pt currently resides at [facility] located at [address], [place] [address]; ([phone]). Per pt's son, Taran ([phone]), the pt did not like her previous facility and needs to be somewhere where she can receive more care. Pt was accepted to [facility] upon admission to [facility] and the son believes that this is a good placement option for the pt. SW will work with the pt, the pt's son and the MD regarding appropriate discharge planning. SW will form a safe and proper discharge.
[2017-12-15 16:00] VITALS: BP 148/85
[2017-12-15 17:02] LABS: HEMATOCRIT 38 % (33-45); HEMOGLOBIN 12.4 g/dL (11.5-14.8); MEAN CORPUSCULAR HEMOGLOBIN 29 PG (26.0-33.0); MEAN CORPUSCULAR HGB CONC 33 g/dl (31.0-36.0); MEAN CORPUSCULAR VOLUME 90 fL (82-100); PLATELET COUNT (AUTO) 515 /CMM (150-450); RDW COEFFICIENT OF VARIATION 14.5 (11.5-15.0); RED BLOOD CELL COUNT(AUTO) 4.25 MIL/uL (4.0-5.2); WHITE BLOOD COUNT (AUTO) 16.1 K/uL (4.3-11.0)
[2017-12-15 17:42] LABS: ALANINE AMINOTRANSFERASE 38 U/L (12-78); ALBUMIN 2.6 g/dL (3.4-5.0); ALKALINE PHOSPHATASE 85 U/L (46-116); ASPARTATE AMINOTRANSFERASE 34 U/L (15-37); BILIRUBIN,TOTAL 0.5 mg/dL (0.2-1.0); CALCIUM, SERUM 9.4 mg/dL (8.5-10.1); CARBON DIOXIDE 28 mmol/L (21-32); CHLORIDE 99 mmol/L (98-107); CREATININE 0.6 mg/dL (0.6-1.3); GLUCOSE 122 mg/dL (74-106); MAGNESIUM 1.6 mg/dL (1.8-2.4); POTASSIUM 3.4 mmol/L (3.5-5.1); SODIUM SERUM 140 mmol/L (136-145); TOTAL PROTEIN, SERUM 7.8 g/dL (6.4-8.2); UREA NITROGEN, BLOOD 12 mg/dL (7-18)
[2017-12-15 17:46] LABS: LYMPHOCYTES % (MANUAL) 14 % (16-48); MONOCYTES % (MANUAL) 8 % (0-11.0); NEUTROPHILS % (MANUAL) 78 (42-76)
--- NOTE | 2017-12-15 18:20 | NUR ---
RN-CO: Paged Dr Dominick Pinto to report K level 3.4 . Awaiting to call back.
[2017-12-15 19:41] VITALS: BP 141/85
[2017-12-15 20:00] VITALS: BP 141/85
[2017-12-15] MEDS: MIRTAZAPINE 15 MG TABLET PO SCH (21:57)
[2017-12-15] MEDS: SERTRALINE HCL 50 MG TABLET PO SCH (21:58)
[2017-12-15] MEDS ORDERED: OLANZAPINE 2.5 MG TABLET PO SCH (22:00)
--- NOTE | 2017-12-15 23:50 | NUR ---
RN NOTES: NOTED K LEVEL AT 3.4 AND MAG LEVEL AT 1.6. PAGED ROCKET PROPELLANT PLANT SUPERVISOR DESPATCH CLERK CARLOS TO INFORM FOR POSSIBLE ORDERS. AWAITING FOR CALL BACK
--- NOTE | 2017-12-16 01:20 | NUR ---
RN NOTES: PAGED TEACHING SPECIALISTS ROLLER LEVELER AGAIN THE SECOND TIME, AWAITING FOR CALL BACK STILL.
--- NOTE | 2017-12-16 03:32 | NUR ---
RN NOTES; CARLOS HORTON BRICK TENDER IN; RELAYED LAB RESULTS WITH NEW ORDERS FOR KCL 10 MEQS AND MAG OX 200 MG NOTED AND CARRIED OUT. 0420 PATIENT GIVEN NEW REPLACEMENT MEDS ORDERED; ALSO COMPLAINING OF NECK PAIN AND REQUESTING FOR PAIN MEDICATION. TYLENOL GIVEN PRN. REPOSITIONING Q2H AND OTHER NON PHARMACOLOGIC PAIN INTERVENTIONS RENDERED. ENSURED COMFORT. CONTINUE TO MONITOR FOR RESPONSE TO MEDICATION.
[2017-12-16] MEDS ORDERED: MAGNESIUM OXIDE 400 MG TABLET PO ONE (04:00)
[2017-12-16] MEDS ORDERED: POTASSIUM CHLORIDE 10 MEQ TABLET.SA PO ONE (04:00)
[2017-12-16] MEDS: ACETAMINOPHEN 325 MG TABLET PO PRN ×2 (04:22→16:37)
[2017-12-16 08:00] VITALS: BP 112/59
[2017-12-16] MEDS: PANTOPRAZOLE 40 MG TABLET.DR PO SCH ×2 (08:47→20:45)
[2017-12-16] MEDS: CEPHALEXIN MONOHYDRATE 500 MG CAPSULE PO SCH ×2 (08:47→20:45)
[2017-12-16] MEDS: AMLODIPINE BESYLATE 10 MG TABLET PO SCH (08:49)
[2017-12-16] MEDS: LEVETIRACETAM (250 MG) 250 MG TABLET PO SCH ×2 (08:49→16:59)
[2017-12-16] MEDS: DOCUSATE SODIUM 250 MG CAPSULE PO SCH ×2 (08:50→16:59)
[2017-12-16] MEDS: PSYLLIUM SEED 1 PKT PACKET PO SCH (08:50)
[2017-12-16] MEDS: LISINOPRIL (20MG) 20 MG TABLET PO SCH (08:50)
[2017-12-16] MEDS: ENSURE ENLIVE CHOC 237 ML CAN PO SCH ×3 (08:51→17:06)
[2017-12-16] MEDS ORDERED: VENLAFAXINE XR 75 MG CAP.SR.24H PO SCH (09:00)
[2017-12-16] MEDS: VENLAFAXINE XR 75 MG CAP.SR.24H PO SCH (13:36)
[2017-12-16 16:00] VITALS: BP 143/79
[2017-12-16] MEDS ORDERED: LEVOFLOXACIN (500MG) 500 MG TABLET PO ONE (17:00)
[2017-12-16 20:24] VITALS: BP 122/69
[2017-12-16] MEDS: TEMAZEPAM 7.5 MG CAPSULE PO PRN (20:45)
--- NOTE | 2017-12-16 20:46 | NUR ---
TEMAZEPQAM 7.5 MG CAP 1 PO GIVEN FOR SLEEP.
--- NOTE | 2017-12-16 21:02 | NUR ---
PATIENT IN BED, OFFERED HER SLEEPING PILL X2, EXPLAINED BENEFITS. AND STILL REFUSED. Addendum: 12/17/17 at 0125 by MADDY MERAZ RN PATIENT FINALLY TOOK HER SLEEPING PILL, TEMAZEPAM 7.5 MG CAP 1 PO.
[2017-12-16] MEDS: OLANZAPINE 2.5 MG TABLET PO SCH (21:10)
[2017-12-16] MEDS ORDERED: SERTRALINE HCL 50 MG TABLET PO SCH (22:00)
[2017-12-17] MEDS: ACETAMINOPHEN 325 MG TABLET PO PRN (01:07)
--- NOTE | 2017-12-17 01:08 | NUR ---
C/O GENERALIZED BODY PAIN, TYLENOL 650 MG TAB PO GIVEN.
[2017-12-17 08:00] VITALS: BP 156/82
[2017-12-17] MEDS: ENSURE ENLIVE CHOC 237 ML CAN PO SCH ×3 (08:00→17:00)
[2017-12-17 08:08] LABS: BASOPHILS % (AUTO) 0.3 % (0.0-2.0); EOSINOPHILS % (AUTO) 0.5 % (0.0-6.0); HEMATOCRIT 38 % (33-45); HEMOGLOBIN 11.9 g/dL (11.5-14.8); LYMPHOCYTES # (AUTO) 1.9 /CMM (0.8-4.8); LYMPHOCYTES % (AUTO) 17.5 % (20.0-44.0); MEAN CORPUSCULAR HEMOGLOBIN 29 PG (26.0-33.0); MEAN CORPUSCULAR HGB CONC 32 g/dl (31.0-36.0); MEAN CORPUSCULAR VOLUME 91 fL (82-100); MONOCYTES # (AUTO) 0.7 /CMM (0.1-1.30); MONOCYTES % (AUTO) 6.3 % (2.0-12.0); NEUTROPHILS # (AUTO) 8.2 /CMM (1.8-8.9); NEUTROPHILS % (AUTO) 75.4 % (43.0-81.0); PLATELET COUNT (AUTO) 545 /CMM (150-450); RDW COEFFICIENT OF VARIATION 14.8 (11.5-15.0); RED BLOOD CELL COUNT(AUTO) 4.11 MIL/uL (4.0-5.2); WHITE BLOOD COUNT (AUTO) 10.9 K/uL (4.3-11.0)
[2017-12-17 08:11] LABS: ALANINE AMINOTRANSFERASE 93 U/L (12-78); ALBUMIN 2.3 g/dL (3.4-5.0); ALKALINE PHOSPHATASE 99 U/L (46-116); ASPARTATE AMINOTRANSFERASE 116 U/L (15-37); BILIRUBIN,TOTAL 0.3 mg/dL (0.2-1.0); CALCIUM, SERUM 9.7 mg/dL (8.5-10.1); CARBON DIOXIDE 29 mmol/L (21-32); CHLORIDE 102 mmol/L (98-107); CREATININE 0.7 mg/dL (0.6-1.3); GLUCOSE 122 mg/dL (74-106); MAGNESIUM 1.7 mg/dL (1.8-2.4); POTASSIUM 3.6 mmol/L (3.5-5.1); SODIUM SERUM 141 mmol/L (136-145); TOTAL PROTEIN, SERUM 7.5 g/dL (6.4-8.2); UREA NITROGEN, BLOOD 22 mg/dL (7-18)
[2017-12-17] MEDS: PSYLLIUM SEED 1 PKT PACKET PO SCH (09:00)
[2017-12-17] MEDS: VENLAFAXINE XR 75 MG CAP.SR.24H PO SCH ×2 (09:08→13:03)
[2017-12-17] MEDS: CEPHALEXIN MONOHYDRATE 500 MG CAPSULE PO SCH (09:08)
[2017-12-17] MEDS: DOCUSATE SODIUM 250 MG CAPSULE PO SCH ×2 (09:08→17:00)
[2017-12-17] MEDS: LEVETIRACETAM (250 MG) 250 MG TABLET PO SCH ×2 (09:08→16:59)
[2017-12-17] MEDS: AMLODIPINE BESYLATE 10 MG TABLET PO SCH (09:09)
[2017-12-17] MEDS: LISINOPRIL (20MG) 20 MG TABLET PO SCH (09:09)
[2017-12-17] MEDS: PANTOPRAZOLE 40 MG TABLET.DR PO SCH ×2 (09:09→20:39)
[2017-12-17] MEDS ORDERED: MAGNESIUM OXIDE 400 MG TABLET PO ONE (10:00)
[2017-12-17 16:00] VITALS: BP 159/77
[2017-12-17] MEDS: LEVOFLOXACIN (250MG) 250 MG TABLET PO SCH (17:00)
[2017-12-17 19:54] VITALS: BP 139/87
--- NOTE | 2017-12-17 19:58 | NUR ---
GPS/RN NOTES RECEIVED PATIENT IN BED, AWAKE AND ABLE TO VERBALIZE NEEDS, PROVIDED COMFORT MEASURES AND BLANKET FOR WARMTH PER REQUEST. RESPIRATIONS EVEN AND UNLABORED, SKIN WARM TO TOUCH, PATIENT IS COMPLIANT WITH MED. NO S/S OF BEHAVIOR CHANGES OR DISORIENTATION, PATIENT DENIES ANY PAIN OR SUICIDAL IDEATION, PATIENT ASSISTED WITH REPOSITION AND TURNING FOR CIRCULATION, PATIENT PROVIDED NEEDS AND OFFERED FLUIDS, PATIENT EDUCATED TO CALL FOR ASSISTANCE, SIDE RAILS UP 2X, BED IN LOCK POSITION, WILL CONTINUE TO MONITOR,
[2017-12-17 20:00] VITALS: BP 139/87
[2017-12-17] MEDS: OLANZAPINE 2.5 MG TABLET PO SCH (21:05)
[2017-12-18 08:00] VITALS: BP 144/59
[2017-12-18] MEDS: LISINOPRIL (20MG) 20 MG TABLET PO SCH (08:58)
[2017-12-18] MEDS: LEVETIRACETAM (250 MG) 250 MG TABLET PO SCH ×2 (08:58→16:25)
[2017-12-18] MEDS: DOCUSATE SODIUM 250 MG CAPSULE PO SCH ×2 (08:58→16:24)
[2017-12-18] MEDS: PANTOPRAZOLE 40 MG TABLET.DR PO SCH ×2 (08:58→21:19)
[2017-12-18] MEDS: ENSURE ENLIVE CHOC 237 ML CAN PO SCH ×3 (08:59→17:09)
[2017-12-18] MEDS: AMLODIPINE BESYLATE 10 MG TABLET PO SCH (08:59)
[2017-12-18] MEDS: PSYLLIUM SEED 1 PKT PACKET PO SCH (08:59)
[2017-12-18] MEDS: VENLAFAXINE 25 MG TABLET PO SCH ×2 (09:13→21:19)
--- NOTE | 2017-12-18 10:44 | NUR ---
RN GPS NOTES PATIENT ARRIVED TO UNIT @ 0935 VIA RUSS-CHAIR FROM GPS ACCOMPANIED BY NURSE DENIZ. PATIENT IS A/O X3. ABLE TO COMMUNICATE VERBALLY. PT IS CALMED AND QUIET. ORIENTED TO ROOM AND STAFF. ON ROOM AIR, BREATHING EVEN AND UNLABORED. PT HAS NO IV ACCESS. SKIN IS INTACT. SAFETY MEASURES INITIATED. BED PLACED IN LOW/LOCKED POSITION WITH SIDE-RAILS UP X2. WILL CONTINUE TO CLOSELY MONITOR PT'S STATUS.
[2017-12-18] MEDS: ACETAMINOPHEN 325 MG TABLET PO PRN ×2 (11:03→17:09)
[2017-12-18] MEDS: SERTRALINE HCL 50 MG TABLET PO SCH ×2 (11:04→16:24)
--- NOTE | 2017-12-18 11:05 | NUR ---
RN NOTES PATIENT C/O OF MILD HEADACHE, PRN TYLENOL 650MG PO GIVEN ORDERED. WILL CONTINUE TO MONITOR.
--- NOTE | 2017-12-18 12:34 | NUR ---
Taran ([phone]), the pt's son, called the SW and discussed the pt being transferred to [facility] and what it would look like for the pt in terms of living situation when she is there.
[2017-12-18] MEDS: LEVOFLOXACIN (250MG) 250 MG TABLET PO SCH (16:25)
--- NOTE | 2017-12-18 17:11 | NUR ---
RN NOTES PATIENT C/O OF MILD HEADACHE, PRN TYLENOL 650MG PO GIVEN at 1709. WILL CONTINUE TO MONITOR.
[2017-12-18 17:45] VITALS: BP 147/84
--- NOTE | 2017-12-18 18:33 | NUR ---
GPS/RN CLOSING NOTES PATIENT RESTING IN BED AT MODERATE HIGH BACKREST POSITION. 1:1 SITTER AT BEDSIDE. A/O X3. ABLE TO VERBALIZED NEEDS WITH PERIOD OF FORGETFULNESS NOTED. PATIENT IS COMPLIANT WITH MEDS. DENIES HI/SI. ALL NEEDS AND CARE ATTENDED WELL. ON ROOM AIR, RESPIRATIONS EVEN AND UNLABORED, SKIN WARM TO TOUCH. ALL SAFETY MEASURES KEPT IN PLACE. BED IN LOW/LOCKED POSITION WITH SIDE RAILS UP 2X. WILL ENDORSE TO TRIMMER CLIMBER NURSE FOR MIKEY.
[2017-12-18 20:00] VITALS: BP 130/72
[2017-12-18] MEDS: OLANZAPINE 2.5 MG TABLET PO SCH (21:20)
[2017-12-19] MEDS: LORAZEPAM 0.5 MG TABLET PO PRN (06:25)
--- NOTE | 2017-12-19 06:28 | NUR ---
RN NOTES COMPLAINED OF FEELING ANXIOUS- ATIVAN 0.5MG PO GIVEN ORDERED, V/S STABLE
--- NOTE | 2017-12-19 07:14 | NUR ---
GPS/RN OPENING NOTES PATIENT RECEIVED ASLEEP IN BED, EASILY AROUSABLE. 1:1 SITTER AT BEDSIDE. A/O X3. PT ON ROOM AIR AND TOLERATING WELL, BREATHING EVEN AND UNLABORED, SKIN WARM TO TOUCH. ALL SAFETY MEASURES KEPT IN PLACE. HOB ELEVATED. BED IN LOW/LOCKED POSITION WITH SIDE RAILS UP 2X. WILL CONTINUE TO MONITOR PT.
[2017-12-19 08:00] VITALS: BP 126/70
[2017-12-19] MEDS: ENSURE ENLIVE CHOC 237 ML CAN PO SCH ×3 (08:19→16:47)
[2017-12-19] MEDS: PSYLLIUM SEED 1 PKT PACKET PO SCH (08:54)
[2017-12-19] MEDS: PANTOPRAZOLE 40 MG TABLET.DR PO SCH ×2 (08:54→20:44)
[2017-12-19] MEDS: DOCUSATE SODIUM 250 MG CAPSULE PO SCH ×2 (08:54→16:47)
[2017-12-19] MEDS: AMLODIPINE BESYLATE 10 MG TABLET PO SCH (08:55)
[2017-12-19] MEDS: LEVETIRACETAM (250 MG) 250 MG TABLET PO SCH ×2 (08:55→16:47)
[2017-12-19] MEDS: VENLAFAXINE 25 MG TABLET PO SCH ×2 (08:55→20:44)
[2017-12-19] MEDS: LISINOPRIL (20MG) 20 MG TABLET PO SCH (08:55)
[2017-12-19] MEDS: SERTRALINE HCL 50 MG TABLET PO SCH ×2 (08:55→16:47)
--- NOTE | 2017-12-19 13:39 | NUR ---
HOSEA called the pt's son, Taran ([phone]), and informed him that the pt will be discharging on Friday to [facility].
[2017-12-19 16:00] VITALS: BP 122/63
[2017-12-19] MEDS: LEVOFLOXACIN (250MG) 250 MG TABLET PO SCH (16:47)
--- NOTE | 2017-12-19 18:36 | NUR ---
GPS/RN CLOSING NOTES PATIENT AWAKE IN BED WITH SITTER AT BEDSIDE. A/O X3. ABLE TO VERBALIZED NEEDS WITH PERIOD OF FORGETFULNESS NOTED. PATIENT IS COMPLIANT WITH MEDS. DENIES HI/SI. ALL NEEDS AND CARE ATTENDED WELL. ON ROOM AIR, TOLERATING WELL WITH NO ACUTE DISTRESS NOTED. ALL SAFETY MEASURES KEPT IN PLACE. HOB ELEVATED. BED IN LOW/LOCKED POSITION WITH SIDE RAILS UP X2. WILL ENDORSE TO SUPERVISOR DOG LICENSE OFFICER NURSE FOR MIKEY.
[2017-12-19 20:00] VITALS: BP 132/76
--- NOTE | 2017-12-19 20:14 | NUR ---
GPS OVERFLOW NOTE RECEIVED PATIENT FROM DAY SHIFT, PATIENT IS ALERT AND ORIENTEDX3, FORGETFUL AT TIMES, NO S/S OF RESPIRATORY DISTRESS AND DENIES PAIN. PATIENT SEEMS DEPRESSED, WITH 1:1 SITTER DUE TO 5250. SRX2, BED IN LOW POSITION, CALL LIGHT WITHIN REACH, WILL CONTINUE TO MONITOR PATIENT.
[2017-12-19] MEDS: OLANZAPINE 2.5 MG TABLET PO SCH (21:29)
[2017-12-19] MEDS: TEMAZEPAM 7.5 MG CAPSULE PO PRN (21:29)
[2017-12-20] MEDS: ACETAMINOPHEN 325 MG TABLET PO PRN ×2 (06:43→18:43)
--- NOTE | 2017-12-20 07:18 | NUR ---
GPS OVERFLOW PATIENT AWAKE IN BED WITH SITTER AT BEDSIDE. A/O X3. PATIENT IS COMPLIANT WITH MEDS. DENIES HI/SI. ALL NEEDS AND CARE ATTENDED WELL. ON ROOM AIR, TOLERATING WELL WITH NO ACUTE DISTRESS NOTED. ALL SAFETY MEASURES KEPT IN PLACE. HOB ELEVATED. BED IN LOW/LOCKED POSITION WITH SIDE RAILS UP X2. ENDORSED TO DAY SHIFT NURSE FOR MIKEY.
--- NOTE | 2017-12-20 07:35 | NUR ---
GPS OVERFLOW RN OPENING NOTES RECEIVED PT LAYING IN BED, SLEEPING COMFORTABLY. SITTER AT BEDSIDE. PT IS RESPONSIVE, EASILY AROUSABLE, AFEBRILE. RESPIRATIONS ARE EVEN AND UNLABORED, NOT IN ANY ACUTE DISTRESS NOTED. PT DENIES ANY PAIN AT THIS TIME, NO C/O N/V, SOB. NO IV ACCESS. SAFETY MEASURES ARE IN PLACE. WILL CONTINUE TO MONITOR THROUGHOUT SHIFT FOR CONTINUITY OF CARE.
[2017-12-20 08:00] VITALS: BP 134/78
[2017-12-20] MEDS: ENSURE ENLIVE CHOC 237 ML CAN PO SCH ×3 (08:42→16:25)
[2017-12-20] MEDS: DOCUSATE SODIUM 100 MG CAPSULE PO SCH ×2 (09:00→16:24)
[2017-12-20] MEDS: VENLAFAXINE 25 MG TABLET PO SCH ×2 (09:00→21:06)
[2017-12-20] MEDS: PSYLLIUM SEED 1 PKT PACKET PO SCH (09:00)
[2017-12-20] MEDS: SERTRALINE HCL 50 MG TABLET PO SCH ×2 (09:00→16:25)
[2017-12-20] MEDS: LEVETIRACETAM (250 MG) 250 MG TABLET PO SCH ×2 (10:03→16:21)
[2017-12-20] MEDS: AMLODIPINE BESYLATE 10 MG TABLET PO SCH (10:04)
[2017-12-20] MEDS: LISINOPRIL (20MG) 20 MG TABLET PO SCH (10:04)
[2017-12-20] MEDS: PANTOPRAZOLE 40 MG TABLET.DR PO SCH ×2 (10:05→21:07)
--- NOTE | 2017-12-20 10:27 | NUR ---
PT NOTED WITH NONCOMPLIANCE M/B REFUSAL TO TAKE MEDICATIONS EXCEPT FOR KEPPRA, AMLODIPINE AND LISINOPRIL. EXPLAINED THE RISKS AND BENEFITS X3, PT STILL NOTED WITH NONCOMPLIANCE. PT STATED "I JUST WANT TO BE LEFT ALONE, I DO NOT WANT TO TAKE ANYMORE OF THOSE PILLS. LEAVE ME ALONE." SITTER AT BEDSIDE FOR SAFETY. WILL CONTINUE TO MONITOR.
[2017-12-20 16:00] VITALS: BP 141/79
[2017-12-20] MEDS: LEVOFLOXACIN (250MG) 250 MG TABLET PO SCH (16:21)
[2017-12-20] MEDS: LORAZEPAM 0.5 MG TABLET PO PRN (16:49)
--- NOTE | 2017-12-20 18:23 | NUR ---
GPS OVERFLOW RN CLOSING NOTES NEEDS ANTICIPATED. SITTER REMAINS AT BEDSIDE. PT REMAINS A/O X3, AFEBRILE. RESPIRATIONS ARE EVEN AND UNLABORED, NOT IN ANY ACUTE DISTRESS NOTED. NO C/O SOB, N/V. NO IV ACCESS NOTED. ENCOURAGED PT TO DRINK FLUIDS TOLERATED. SAFETY MEASURES ARE IN PLACE. REMINDED PT TO USE CALL LIGHT WHEN ASSISTANCE IS NEEDED, CALL LIGHT IS LEFT WITHIN REACH.
[2017-12-20 20:00] VITALS: BP 123/68
[2017-12-20] MEDS: OLANZAPINE 2.5 MG TABLET PO SCH (21:07)
[2017-12-20] MEDS: TEMAZEPAM 7.5 MG CAPSULE PO PRN (21:07)
[2017-12-21] MEDS: LORAZEPAM 0.5 MG TABLET PO PRN ×3 (05:36→19:38)
--- NOTE | 2017-12-21 06:36 | NUR ---
GPS OVERFLOW PATIENT AWAKE IN BED WITH SITTER AT BEDSIDE. A/O X3. PATIENT IS COMPLIANT WITH MEDS. DENIES HI/SI. ALL NEEDS AND CARE ATTENDED WELL. ON ROOM AIR, TOLERATING WELL WITH NO ACUTE DISTRESS NOTED. ALL SAFETY MEASURES KEPT IN PLACE. HOB ELEVATED. BED IN LOW/LOCKED POSITION WITH SIDE RAILS UP X2. WILL ENDORSE TO DAY SHIFT NURSE FOR MIKEY.
[2017-12-21 08:00] VITALS: BP 129/62
--- NOTE | 2017-12-21 08:00 | NUR ---
GPS OVERFLOW TRANSFER NOTE ALL MORNING MEDS GIVEN, NEEDS MET AND RENDERED. PT REMAINS A/O X3, AFEBRILE. RESPIRATIONS ARE EVEN AND UNLABORED, NOT IN ANY ACUTE DISTRESS NOTED. PT DENIES ANY PAIN, SOB, N/V. NO IV ACCESS. SKIN IS INTACT. TRANSFERRED TP VIA WHEELCHAIR IN STABLE CONDITION ACCOMPANIED BY 2 STAFF. REPORT GIVEN TO ELIZABETH MOLINA.
[2017-12-21] MEDS: ENSURE ENLIVE CHOC 237 ML CAN PO SCH ×3 (08:03→16:18)
[2017-12-21] MEDS: LEVETIRACETAM (250 MG) 250 MG TABLET PO SCH ×2 (08:05→16:18)
[2017-12-21] MEDS: DOCUSATE SODIUM 100 MG CAPSULE PO SCH ×2 (08:06→16:17)
[2017-12-21] MEDS: PANTOPRAZOLE 40 MG TABLET.DR PO SCH ×2 (08:06→21:12)
[2017-12-21] MEDS: LISINOPRIL (20MG) 20 MG TABLET PO SCH (08:06)
[2017-12-21] MEDS: SERTRALINE HCL 50 MG TABLET PO SCH ×2 (08:06→16:18)
[2017-12-21] MEDS: AMLODIPINE BESYLATE 10 MG TABLET PO SCH (08:07)
[2017-12-21] MEDS: VENLAFAXINE 25 MG TABLET PO SCH ×2 (08:09→21:12)
[2017-12-21] MEDS: PSYLLIUM SEED 1 PKT PACKET PO SCH (08:09)
--- NOTE | 2017-12-21 08:45 | NUR ---
PT RETURNED TO GPS, RE ORIENTATED TO [place] AND BREIFED ON TODAY'S POC. N CONCERNS OR CPOMPLAINTS AT THIS TIME. WILL CONTINUE POC.
--- NOTE | 2017-12-21 11:22 | NUR ---
PT ANXIOUS AND REQUESTING PRN. PT REMAINS REFUSING JOINING THE COMMON AREA.
[2017-12-21 16:00] VITALS: BP 141/65
[2017-12-21] MEDS: LEVOFLOXACIN (250MG) 250 MG TABLET PO SCH (16:18)
[2017-12-21 20:08] VITALS: BP 114/75
[2017-12-21] MEDS: OLANZAPINE 2.5 MG TABLET PO SCH (21:12)
[2017-12-21] MEDS: TEMAZEPAM 7.5 MG CAPSULE PO PRN (23:29)
[2017-12-22 08:00] VITALS: BP 90/54
[2017-12-22 08:10] VITALS: BP 90/54
[2017-12-22] MEDS: LISINOPRIL (20MG) 20 MG TABLET PO SCH (08:10)
[2017-12-22] MEDS: AMLODIPINE BESYLATE 10 MG TABLET PO SCH (08:10)
[2017-12-22] MEDS: LEVETIRACETAM (250 MG) 250 MG TABLET PO SCH (09:00)
[2017-12-22] MEDS: VENLAFAXINE 25 MG TABLET PO SCH (09:00)
[2017-12-22] MEDS: PSYLLIUM SEED 1 PKT PACKET PO SCH (09:00)
[2017-12-22] MEDS: SERTRALINE HCL 50 MG TABLET PO SCH (09:00)
[2017-12-22] MEDS: PANTOPRAZOLE 40 MG TABLET.DR PO SCH (09:00)
[2017-12-22] MEDS: DOCUSATE SODIUM 100 MG CAPSULE PO SCH (09:00)
[2017-12-22] MEDS: ENSURE ENLIVE CHOC 237 ML CAN PO SCH (09:02)
--- NOTE | 2017-12-22 09:30 | NUR ---
gps contact center team lead: notes pt for d'c to [facility]. pt made aware. per social services, son (kavin) is aware of d'c to snf. report given to jeronimo (rn) for continuity of care. dr. alexander here and aware. pt stable for discharge. dr. montano notified by cn and made aware with order okay for discharge to snf.
--- NOTE | 2017-12-22 11:10 | NUR ---
gps client service and consulting manager: notes ambulance here and report given to one of the crew.
[2017-12-22] MEDS: ACETAMINOPHEN 325 MG TABLET PO PRN (11:16)
--- NOTE | 2017-12-22 11:25 | NUR ---
gps green lumber grader: discharged pt stable for discharge. pt denies si/hi at time of discharged. no visual/auditory hallucination at time of discharge. discharge to snf via ambulance accompanied by crew. all needs attended.
--- NOTE | 2017-12-22 12:44 | NUR ---
Discharge Note: Pt was discharged to [facility] ([facility]) located at [address] [place] [address]; ([phone]). Pt was transported via [facility] (Trip #[id number]) at 11AM. Pts son, Taran ([phone]), is aware of this placement. Upon discharge, the pt stated that she does not have any suicidal or homicidal ideation as well as visual or auditory hallucinations. Pt appeared to be in a dysphoric mood with a flat and depressed affect. Pt stated that she still feels pain in her body and complained that she is frustrated by how she cannot go to the bathroom unattended. Pt will be under the care of psychiatrist, Dr. Dia, located at [address] [address], [place] [address]; and her soa integration architect, Dr. Malone, located at [address] [place] [address]; .
--- NOTE | 2017-12-22 14:44 | NUR ---
HOSEA called the pt's son, Taran ([phone]), and informed him that the pt was returned from [facility] due to chest pain and that once she is medically cleared that she will be returning there.
== END 2017-12-22 11:25 | DRG 885 ==
LOC: GPS 18:31 → GPSOV2 12-18 10:24 → GPS 12-21 08:35
PROVIDERS: ADMIT Psychiatry & Neurology Psychosomatic Medicine; ATTEND Nurse Practitioner Acute Care
DX: F33.3 Major depressive disorder, recurrent, severe with psychotic symptoms (principal); E44.0 Moderate protein-calorie malnutrition; N39.0 Urinary tract infection, site not specified; Z68.1 Body mass index [BMI] 19.9 or less, adult; F23 Brief psychotic disorder; I10 Essential (primary) hypertension; F41.9 Anxiety disorder, unspecified; K21.9 Gastro-esophageal reflux disease without esophagitis; E83.42 Hypomagnesemia; M19.90 Unspecified osteoarthritis, unspecified site; K80.20 Calculus of gallbladder without cholecystitis without obstruction; K57.90 Diverticulosis of intestine, part unspecified, without perforation or abscess without bleeding; K64.8 Other hemorrhoids; E78.5 Hyperlipidemia, unspecified; E88.09 Other disorders of plasma-protein metabolism, not elsewhere classified; M62.50 Muscle wasting and atrophy, not elsewhere classified, unspecified site; D72.829 Elevated white blood cell count, unspecified; M50.30 Other cervical disc degeneration, unspecified cervical region
CPT/HCPCS: 36415; 80048-TC; 80053-TC; 80061-TC; 80076-TC; 81000-TC; 82565-TC; 83735-TC; 84100-TC; 84443-TC; 85025-TC; A4606; Q0162

== ENCOUNTER 2017-12-22 13:36 | Inpatient (IN) | payer MEDICARE, OTHER ==
[~2017-12-22] VITALS: Ht 167.6 cm; Wt 54.9 kg
[~2017-12-22 13:36] MED LIST changes: +ACET-868 PO; +ALLA266C2 TP; -ARIP5TAB10 PO; +HYDR-552 PO; -LORA0.5T PO; +MAG30ORA PO; +MAGN400O6 PO; -MIRT15TA PO; +MORP4VIA IV; -NITR100C15 PO; +ONDA4VIA52 IV; +PANT40VI IV; +PSYL1PAC8 PO; -SERT100T12 PO; -TEMA15CA PO; -TRAZ-214 PO
[2017-12-22] MEDS ORDERED: ASPIRIN 325 MG TABLET PO ONE (14:30)
[2017-12-22] MEDS ORDERED: NITROGLYCERIN 0.4 MG/TAB BOTTLE SL ONE (14:30)
--- NOTE | 2017-12-22 14:30 | NUR ---
CLINICAL SUPPORT NURSE AT BEDSIDE FOR BLOOD DRAW.
[2017-12-22] MEDS ORDERED: NITROGLYCERIN 0.4 MG/TAB BOTTLE ONE (14:37)
[2017-12-22] MEDS ORDERED: ASPIRIN 325 MG TABLET ONE (14:37)
[2017-12-22 14:43] LABS: BASOPHILS # (AUTO) 0.2 /CMM (0.0-0.2); BASOPHILS % (AUTO) 1.6 % (0.0-2.0); EOSINOPHILS % (AUTO) 0.8 % (0.0-6.0); HEMATOCRIT 37 % (33-45); HEMOGLOBIN 11.8 g/dL (11.5-14.8); LYMPHOCYTES # (AUTO) 3.2 /CMM (0.8-4.8); LYMPHOCYTES % (AUTO) 22.4 % (20.0-44.0); MEAN CORPUSCULAR HGB CONC 32 g/dl (31.0-36.0); MEAN CORPUSCULAR VOLUME 90 fL (82-100); NEUTROPHILS # (AUTO) 9.7 /CMM (1.8-8.9); NEUTROPHILS % (AUTO) 68.2 % (43.0-81.0); PLATELET COUNT (AUTO) 623 /CMM (150-450); RDW COEFFICIENT OF VARIATION 14.6 (11.5-15.0); RED BLOOD CELL COUNT(AUTO) 4.08 MIL/uL (4.0-5.2); WHITE BLOOD COUNT (AUTO) 14.2 K/uL (4.3-11.0)
--- NOTE | 2017-12-22 14:50 | NUR ---
TELEPHONE INTERCEPTOR OPERATOR AT BEDSIDE.
--- NOTE | 2017-12-22 14:55 | NUR ---
NEW IV STARTED ON LAC, 20G.
[2017-12-22 14:58] LABS: CALCIUM, SERUM 9.5 mg/dL (8.5-10.1); CARBON DIOXIDE 29 mmol/L (21-32); CHLORIDE 100 mmol/L (98-107); CREATININE 1.1 mg/dL (0.6-1.3); GLUCOSE 105 mg/dL (74-106); POTASSIUM 3.7 mmol/L (3.5-5.1); SODIUM SERUM 138 mmol/L (136-145); UREA NITROGEN, BLOOD 19 mg/dL (7-18)
[2017-12-22 15:00] LABS: INR 1.12 (0.87-1.13)
[2017-12-22 15:07] LABS: TROPONIN I < 0.017 ng/mL (0.00-0.056)
[2017-12-22 15:11] LABS: B-TYPE NATRIURETIC PEPTIDE 111 PG/ML (0-125)
--- NOTE | 2017-12-22 16:27 | NUR ---
REPORT GIVEN TO MARILU JOHNSON FOR MIKEY UPON ADMISSION.
--- NOTE | 2017-12-22 17:52 | NUR ---
PATIENT TRANSPORTED TO [facility] VIA ACLS PROTOCOL. RNMARILU TO PROVIDE MIKEY.
[2017-12-22 18:00] VITALS: BP 135/70
[2017-12-22] MEDS ORDERED: MAG HYDROX/AL HYDROX/SIMETH 30 ML UDC PO PRN (18:00)
[2017-12-22] MEDS ORDERED: Z GUARD REMEDY 2 OZ OINT TP PRN (18:00)
[2017-12-22] MEDS ORDERED: ACETAMINOPHEN 325 MG TABLET PO PRN (18:00)
[2017-12-22] MEDS ORDERED: ONDANSETRON HCL/PF 4 MG/2 ML VIAL IVP PRN (18:00)
[2017-12-22] MEDS ORDERED: ZOLPIDEM TARTRATE 5 MG TABLET PO PRN (18:00)
[2017-12-22] MEDS ORDERED: HYDROCODONE/APAP 5/325MG 1 EACH TABLET PO PRN (18:00)
[2017-12-22] MEDS ORDERED: MAGNESIUM HYDROXIDE 30 ML UDC PO PRN (18:00)
[2017-12-22] MEDS ORDERED: PANTOPRAZOLE 40 MG TABLET.DR PO SCH (18:00)
--- NOTE | 2017-12-22 19:00 | NUR ---
FACILITIES MAINTENANCE ENGINEER NOTES ADMITTED PATIENT FROM ER. ARRIVED AT UNIT AT 1800 VIA GURNEY. REPORT OBTAINED FROM RONALD JOHNSON. PATIENT AWAKE, ALERT AND ORIENTED X 4. KNOWS CURRENT LOCATION, DATE,TIME. VERBALLY RESPONSIVE AND RESPONDS TO VERBAL AND TACTILE STIMULI. PATIENT ADMITTED UNDER MEDICAL SUPERVISION OF DR. REYES. AWARE OF PATIENT ARRIVAL. PATIENT SEEN BY DR. FAROOQ WITH ORDER FOR ANN SCAN IN AM. PLACED CALL TO VISHAL (SON), VERIFIED INFORMED CONSENT OBTAINED FROM SON VISHAL, AND TELEPHONE CONSENT WITNESSED. PATIENT ORIENTED TO STAFF, UNIT, PLAN OF CARE. WILL ENDORSE TO INCOMING SHIFT FOR MIKEY. BED LOCKED AND IN LOW POSITION. BILATERAL UPPER SIDE RAILS UP AND LOCKED. CALL LIGHT WITHIN EASY REACH
--- NOTE | 2017-12-22 19:10 | NUR ---
TELE/RN NOTES RECEIVED PT. LYING IN BED. PT. IS AWAKE, ALERT AND ORIENTED X 2-3. BREATHING EVEN AND UNLABORED ON ROOM AIR. NO SOB, RESPIRATORY DISTRESS OR COMPLAINTS OF PAIN NOTED AT THIS TIME. NO COMPLAINTS OF CHEST PAIN NOTED AT THIS TIME. PT. WITH EXTERNAL WAVE SOLDER OFFBEARER PRESENT AND INTACT CURRENT RHYTHM = SINUS RHYTHM WITH PAC'S HR 81. PT. WITH LEFT AC 20 GAUGE IV SALINE LOCK PRESENT, PATENT AND INTACT. PER DAYSHIFT NURSE PT. IS GOING FOR STRESS TEST TOMORROW MORNING, CONSENT SIGNED AND PLACED IN PT. CHART. PT. TO BE NPO AFTER MIDNIGHT. BED LOCKED AND IN LOWEST POSITION, SIDE RAILS UP X2, BED ALARM ON, CALL LIGHT WITHIN REACH, WILL CONTINUE TO MONITOR.
[2017-12-22 20:00] VITALS: BP_SYST 129; BP_SYST 136; BP_DIAS 65; BP_DIAS 72
[2017-12-22 20:05] VITALS: BP 136/72
[2017-12-23] VITALS: BP 129/65
--- NOTE | 2017-12-23 00:01 | NUR ---
TELE/RN NOTES NOTIFIED EPIC FIRE CODE INSPECTOR DR. GRAY PT. MEDICATION RECONCILIATION NOT DONE YET. PER DR. GRAY "I WILL RECONCILE THE MEDICATIONS". WILL CONTINUE TO MONITOR.
[2017-12-23] MEDS ORDERED: Z GUARD REMEDY 2 OZ OINT TP PRN (00:30)
--- NOTE | 2017-12-23 04:00 | NUR ---
TELE/RN NOTES PT. REFUSING 0400 VITAL SIGNS TO BE TAKEN. PT. STATES "LEAVE ME ALONE YOUR TRYING TO HURT ME" EDUCATED PT. ON IMPORTANCE OF TAKING VITAL SIGNS. PT. CONTINUES TO REFUSE. WILL CONTINUE TO MONITOR.
--- NOTE | 2017-12-23 04:51 | NUR ---
TELE/RN NOTES CALLED AND NOTIFIED EPIC INTERNATIONAL STUDENT ADVISOR DR. GRAY PT. IS COMPLAINING OF CONSTIPATION AND ASKING FOR SUPPOSITORY. PER DR. GRAY NEW ORDER: DULCOLAX 10MG DAILY SUPPOSITORY PRN CONSTIPATION. WILL CARRY OUT ORDER. WILL CONTINUE TO MONITOR.
[2017-12-23] MEDS ORDERED: BISACODYL SUPP (10 MG) 10 MG/SUPP.RECT SUPP.RECT RC PRN (05:00)
--- NOTE | 2017-12-23 05:10 | NUR ---
TELE/RN NOTES OFFERED PT. PRN DULCOLAX SUPPOSITORY PT. REFUSING. PT. STATES SHE CHANGED HER MIND AND DOESN'T WANT IT ANYMORE. WILL CONTINUE TO MONITOR.
--- NOTE | 2017-12-23 06:04 | NUR ---
TELE/RN NOTES PT. IS LYING IN BED RESTING. BREATHING EVEN AND UNLABORED ON ROOM AIR. NO SOB, RESPIRATORY DISTRESS OR COMPLAINTS OF PAIN NOTED AT THIS TIME AND THROUGHOUT SHIFT. NO COMPLAINTS OF CHEST PAIN NOTED AT THIS TIME. PT. WITH EXTERNAL WIRE BENDER PRESENT AND INTACT CURRENT RHYTHM = SINUS RHYTHM WITH PAC'S HR 70. PT. WITH LEFT AC 20 GAUGE IV SALINE LOCK PRESENT, PATENT AND INTACT. PT. REMAINS NPO SINCE MIDNIGHT PENDING STRESS TEST THIS MORNING. ALL PT. NEEDS MET. BED LOCKED AND IN LOWEST POSITION, SIDE RAILS UP X2, BED ALARM ON, CALL LIGHT WITHIN REACH, WILL ENDORSE TO DAYSHIFT NURSE FOR CONTINUITY OF CARE.
[2017-12-23 06:27] VITALS: BP 157/90
[2017-12-23] MEDS ORDERED: PANTOPRAZOLE 40 MG TABLET.DR PO SCH (07:30)
--- NOTE | 2017-12-23 07:56 | NUR ---
OPENING MAGNET PLACER NOTES RECEIVED PATIENT IN BED RESTING, A&O X 2-3, VERBALLY RESPONSIVE AND ABLE TO MAKE NEEDS KNOWN. BREATHING EVEN AND UNLABORED ON ROOM AIR. NO COMPLAINT OF PAIN OR DISCOMFORT AT THE TIME. BED IN LOWEST LOCKED POSITION, CALL LIGHT WITHIN REACH, WILL CONTINUE TO MONITOR
[2017-12-23 08:00] VITALS: BP 154/79
[2017-12-23] MEDS ORDERED: AMLODIPINE BESYLATE 10 MG TABLET PO SCH (09:00)
[2017-12-23] MEDS ORDERED: LEVETIRACETAM (250 MG) 250 MG TABLET PO SCH (09:00)
[2017-12-23] MEDS ORDERED: REGADENOSON 0.4 MG/5 ML DISP.SYRIN IVP ONE (10:00)
[2017-12-23] MEDS: DOCUSATE SODIUM 100 MG CAPSULE PO SCH ×2 (11:33→17:31)
[2017-12-23] MEDS: ENSURE ENLIVE 237 ML LIQUID (VANILLA) PO SCH ×2 (11:48→17:55)
[2017-12-23 16:00] VITALS: BP 133/78
[2017-12-23] MEDS ORDERED: DEXTROSE 50%-WATER 50 ML DISP.SYRIN IV PRN (16:00)
[2017-12-23] MEDS ORDERED: INSULIN REGULAR, HUMAN 100 UNIT/ML 3 ML VIAL SQ PRN (16:00)
[2017-12-23] MEDS ORDERED: NS 0.9% IV ONE (17:00)
[2017-12-23] MEDS ORDERED: hydrALAZINE HCL IV 20 MG VIAL IV ONE (17:00)
[2017-12-23] MEDS ORDERED: HYDRALAZINE HCL IV ONE (17:00)
[2017-12-23] MEDS ORDERED: BLOOD SUGAR DIAGNOSTIC 1 EACH STRIP IN SCH (17:30)
--- NOTE | 2017-12-23 18:18 | NUR ---
RN MEDSURG CLOSING NOTES PATIENT IN BED, RESTING, AWAKE A&OX2-3, FORGETFUL. BREATHING EVEN AND UNLABORED ON ROOM AIR. REMAINS ON BED REST, NO COMPLAINT OF PAIN OR DISCOMFORT. ALL NEEDS ATTENDED TO. BED IN LOWEST LOCKED POSITION, CALL LIGHT WITHIN REACH. WILL ENDORSE TO NIGHT NURSE FOR MIKEY
[2017-12-23 18:48] VITALS: BP 133/78
[2017-12-23 19:13] LABS: BASOPHILS # (AUTO) 0.3 /CMM (0.0-0.2); BASOPHILS % (AUTO) 1.7 % (0.0-2.0); EOSINOPHILS % (AUTO) 0.9 % (0.0-6.0); HEMATOCRIT 40 % (33-45); LYMPHOCYTES # (AUTO) 2.8 /CMM (0.8-4.8); LYMPHOCYTES % (AUTO) 17.3 % (20.0-44.0); MEAN CORPUSCULAR HGB CONC 32 g/dl (31.0-36.0); MEAN CORPUSCULAR VOLUME 90 fL (82-100); MONOCYTES # (AUTO) 0.7 /CMM (0.1-1.30); MONOCYTES % (AUTO) 4.6 % (2.0-12.0); NEUTROPHILS # (AUTO) 12.1 /CMM (1.8-8.9); NEUTROPHILS % (AUTO) 75.5 % (43.0-81.0); PLATELET COUNT (AUTO) 699 /CMM (150-450); RDW COEFFICIENT OF VARIATION 14.7 (11.5-15.0); RED BLOOD CELL COUNT(AUTO) 4.48 MIL/uL (4.0-5.2)
[2017-12-23 19:23] LABS: CALCIUM, SERUM 9.3 mg/dL (8.5-10.1); CARBON DIOXIDE 28 mmol/L (21-32); CHLORIDE 100 mmol/L (98-107); CREATININE 0.8 mg/dL (0.6-1.3); GLUCOSE 124 mg/dL (74-106); MAGNESIUM 1.4 mg/dL (1.8-2.4); PHOSPHORUS 3.4 mg/dL (2.5-4.9); POTASSIUM 3.3 mmol/L (3.5-5.1); SODIUM SERUM 140 mmol/L (136-145); UREA NITROGEN, BLOOD 16 mg/dL (7-18)
[2017-12-23 19:26] LABS: CHOLESTEROL 178 mg/dL (<200); HDL CHOLESTEROL 42 mg/dL (40-60); LDL 123 mg/dL (0-99); THYROID STIMULATING HORMONE 1.419 uIU/mL (0.358-3.74); TRIGLYCERIDES 52 mg/dL (30-150)
--- NOTE | 2017-12-23 19:30 | NUR ---
RN MS OPENING NOTES RECEIVED PATIENT IN BED AWAKE. ALERT AND ORIENTED X2. VERBALLY RESPONSIVE. BREATHING EVEN AND UNLABORED. NO SOB NOTED. ON ROOM AIR. NO COMPLAINTS OF PAIN OR DISCOMFORT. IV ACCESS INTACT AND PATENT. SKIN DRY AND WARM TO TOUCH. ALL OTHER NEEDS ATTENDED TO. SAFETY MEASURES IN PLACE. CALL LIGHT WITHIN REACH. WILL CONTINUE TO MONITOR.
--- NOTE | 2017-12-23 20:23 | NUR ---
LEAD SUPPLY WORKER NOTES PATIENT DISCHARGED AT 2019 VIA [facility] IN STABLE CONDITION. BREATHING EVEN AND UNLABORED. NO SOB NOTED. TOLERATING ROOM AIR. NO COMPLAINTS OF PAIR OR DISCOMFORT. IV ACCESS REMOVED AND APPLIED DRESSING ON TOP. NO BLEEDING NOTED. FINAL SKIN CHECK RENDERED - NO SKIN ISSUES NOTED. PATIENT SIGNED DISCHARGE PAPERWORKS. ALL BELONGINGS ACCOUNTED FOR WITH INVENTORY LIST SIGNED BY PATIENT. ALL OTHER NEEDS ATTENDED TO. KEPT CLEAN AND DRY PRIOR TO LEAVING. REPORT GIVEN TO ELIZABETH PALENCIA FROM [facility].
== END 2017-12-23 20:20 | DRG 880 ==
LOC: ER 13:38 → TELE 16:46 → MED 12-23 14:50
PROVIDERS: ADMIT Student in an Organized Health Care Education/Training Program; ATTEND Student in an Organized Health Care Education/Training Program
DX: F41.9 Anxiety disorder, unspecified (principal); N39.0 Urinary tract infection, site not specified; E44.0 Moderate protein-calorie malnutrition; Z68.1 Body mass index [BMI] 19.9 or less, adult; I10 Essential (primary) hypertension; E11.9 Type 2 diabetes mellitus without complications; F32.9 Major depressive disorder, single episode, unspecified; D72.829 Elevated white blood cell count, unspecified; K64.8 Other hemorrhoids; E78.5 Hyperlipidemia, unspecified; M19.90 Unspecified osteoarthritis, unspecified site; K57.90 Diverticulosis of intestine, part unspecified, without perforation or abscess without bleeding; G31.89 Other specified degenerative diseases of nervous system; M85.80 Other specified disorders of bone density and structure, unspecified site
CPT/HCPCS: 36415; 71045-TC; 80048-TC; 80061-TC; 83735-TC; 83880; 84100-TC; 84443-TC; 84484-TC; 85025-TC; 85730-TC; 87081-TC; 93307-TC; A4216; A4606; A9502; J0360; J1815; J2785; J7050

== ENCOUNTER 2018-04-01 14:14 | Inpatient (IN) | payer MEDICARE, OTHER ==
[~2018-04-01] VITALS: Ht 160 cm; Wt 49.0 kg
[~2018-04-01 14:14] MED LIST changes: -AMLO10TA6 PO; +AMLO10TA7 PO; -HYDR-552 PO; -MORP4VIA IV; -ONDA4VIA52 IV; -PANT40VI IV
--- NOTE | 2018-04-01 14:34 | NUR ---
PT BIB PRIVATE TRANSPORT FROM SNF; PT CAME FROM MD VISIT PER HAIR BOILER OPERATOR PT BECAME ALTERED, PT AAOX1, ABLE TO FOLLOW SIMPLE COMMANDS, RESPIRATIONS EVEN AND UNLABORED, NO SOB, NAD NOTED, VSS, ON MONITOR. AWAITING MD VICENTE
--- NOTE | 2018-04-01 14:41 | NUR ---
BLOOD DRAWN AND SENT TO LAB; NO URINE ORDER AT THIS TIME
[2018-04-01] MEDS ORDERED: IOHEXOL-350 100 ML VIAL IV ONE (14:58)
[2018-04-01 14:59] LABS: BASOPHILS % (AUTO) 0.4 % (0.0-2.0); EOSINOPHILS % (AUTO) 0.3 % (0.0-6.0); HEMATOCRIT 32 % (33-45); HEMOGLOBIN 10.3 g/dL (11.5-14.8); LYMPHOCYTES # (AUTO) 2.3 /CMM (0.8-4.8); LYMPHOCYTES % (AUTO) 21.1 % (20.0-44.0); MEAN CORPUSCULAR HGB CONC 32 g/dl (31.0-36.0); MEAN CORPUSCULAR VOLUME 87 fL (82-100); MONOCYTES # (AUTO) 0.8 /CMM (0.1-1.30); MONOCYTES % (AUTO) 6.9 % (2.0-12.0); NEUTROPHILS # (AUTO) 7.7 /CMM (1.8-8.9); NEUTROPHILS % (AUTO) 71.3 % (43.0-81.0); PLATELET COUNT (AUTO) 593 /CMM (150-450); RED BLOOD CELL COUNT(AUTO) 3.71 MIL/uL (4.0-5.2); WHITE BLOOD COUNT (AUTO) 10.9 K/uL (4.3-11.0)
[2018-04-01] MEDS ORDERED: IV NS 0.9% 250 ML IV ONE (14:59)
[2018-04-01] MEDS ORDERED: CT SWABBABLE VALVE TRANS SET 1 EA INFUS.SET MC ONE (14:59)
[2018-04-01] MEDS ORDERED: IV NS 0.9% 1,000 ML BAG IV ONE (15:00)
[2018-04-01 15:07] LABS: CALCIUM, SERUM 9.1 mg/dL (8.5-10.1); CARBON DIOXIDE 27 mmol/L (21-32); CHLORIDE 101 mmol/L (98-107); CREATININE 0.9 mg/dL (0.6-1.3); GLUCOSE 146 mg/dL (74-106); POTASSIUM 4.2 mmol/L (3.5-5.1); SODIUM SERUM 137 mmol/L (136-145); UREA NITROGEN, BLOOD 13 mg/dL (7-18)
[2018-04-01 15:14] LABS: CHOLESTEROL 147 mg/dL (<200); HDL CHOLESTEROL 43 mg/dL (40-60); LDL 91 mg/dL (0-99); TRIGLYCERIDES 57 mg/dL (30-150)
--- NOTE | 2018-04-01 15:49 | NUR ---
SPOKE TO CHHAYA FROM [place] REGARDING PT CONDITION
--- NOTE | 2018-04-01 15:51 | NUR ---
NURSING SUP MADE AWARE OF ICU BED REQUEST FOR THIS PATIENT.
[2018-04-01] MEDS ORDERED: ZOLP5TAB2 PO (16:10)
[2018-04-01] MEDS ORDERED: LORA-258 PO (16:10)
[2018-04-01] MEDS ORDERED: MIRT15TA7 PO (16:10)
[2018-04-01] MEDS ORDERED: DULO30CA2 PO (16:10)
--- NOTE | 2018-04-01 16:38 | NUR ---
CALLED NURSING SUP REQUESTED TELE BED FOR THIS PATIENT.
--- NOTE | 2018-04-01 17:00 | NUR ---
ADMIT 103 TELE DX ENCEPHALOPATHY ACCEPTING CLARY FLORENTINO
--- NOTE | 2018-04-01 17:25 | NUR ---
REPORT GIVEN TO ELIZABETH JESUS FOR MIKEY
--- NOTE | 2018-04-01 17:39 | NUR ---
URINE COLLECTED AND SENT TO LAB
--- NOTE | 2018-04-01 17:41 | NUR ---
TRANSFERRED TO ROOM 103 TELE VIA ACLS PROTOCOL
[2018-04-01 17:45] VITALS: BP 119/70
--- NOTE | 2018-04-01 17:45 | NUR ---
MS DORMITORY SUPERVISOR NOTE RECEIVED PT FROM ER VIA [facility] WITH DX OF ENCEPHALOPATHY. PT IS AROUSABLE ONLY TO PAIN AND STERNAL RUB. SPEECH IS GARBLED. PT PLACED ON FOOD PROCESSOR WITH A SINUS RHYTHM, HR 72. VS WNL. BREATHING IS EVEN AND UNLABORED ON ROOM AIR. ADMISSION DOCUMENTATION COMPLETE PER PROTOCOL. L FA #18G AND L AC #18G IVS ARE SALINE LOCKED WITHOUT REDNESS OR SWELLING. ALL BELONGINGS ACCOUNTED FOR AND BELONGINGS LIST SIGNED AND PLACED IN CHART. WOUND DOCUMENTATION COMPLETE PER PROTOCOL. BED IS LOCKED AND IN LOWEST POSITION, SIDE RAILS UP X2, BED ALARM ON, CALL LIGHT WITHIN REACH. AWAITING ADMISSION ORDERS.
[2018-04-01 18:00] LABS: APPEARANCE,URINE Clear (CLEAR); BILIRUBIN,URINE Negative (NEGATIVE); BLOOD, URINE Trace-intact Ery/uL (NEGATIVE); COLOR,URINE Yellow (YELLOW); KETONES,URINE Negative (NEGATIVE); LEUKOCYTE ESTERASE ,URINE Trace (NEGATIVE); NITRITE, URINE Negative (NEGATIVE); PH,URINE 8.5 (5.0-8.0); PROTEIN,URINE Negative (NEGATIVE); UGLUCOSE Negative (NEGATIVE); UROBILINOGEN,URINE 0.2 EU/dL (0.2)
[2018-04-01 18:03] LABS: BACTERIA,URINE Few /HPF (None Seen); SQUAMOUS EPITHELIAL CELL,UR Few /HPF (None Seen)
[2018-04-01] MEDS: IV NS 0.9% 1,000 ML IV PRN (18:48)
[2018-04-01 19:34] LABS: ABG BASE EXCESS -1.4 mmol/L; ABG OXYGEN SATURATION 94.8 % (92.0-98.5); ABG PCO2 37.8 mmHg (35.0-45.0); ABG PH 7.404 (7.350-7.450); ABG PO2 79.7 mmHg (75.0-100.0); AaDO2 24.8 mmHg; COHb 0.8 % (0.5-1.5); MetHb 0.3 % (0.0-1.5); O2Hb 93.8 % (94.0-97.0)
--- NOTE | 2018-04-01 19:50 | NUR ---
ENGINEER GAS PUMPING STATION NOTE RECEIVED PT IN BED ASLEEP, AROUSABLE TO PAINFUL STIMULATION. NO SOB, NO DISTRESS OR DISCOMFORT NOTED. NO S/S OF PAIN NOTED. IVF NS INFUSING AT 100 ML/HR, NO S/S OF INFILTRATION NOTED. REPOSITION HER FOR SKIN MANAGEMENT. SIDE RAILS UP X 2 AND CALL LIGHT WITHIN REACH. VSS. CONTINUE TO MONITOR HER. Addendum: 04/01/18 at 1954 by FAITH JORGENSEN RN ON TELE MONITOR SR HR 66.
[2018-04-01] MEDS: CEFTRIAXONE 1 G in IV D5W 50 ML IV SCH (20:40)
[2018-04-01] MEDS: LEVETIRACETAM SOL (5 ML) 100 MG/ML UDC PO SCH (20:40)
[2018-04-01] MEDS: ENOXAPARIN SODIUM 40 MG/0.4 ML DISP.SYRIN SQ SCH (20:42)
[2018-04-02] VITALS: BP 129/64
[2018-04-02 04:00] VITALS: BP 107/58
--- NOTE | 2018-04-02 06:20 | NUR ---
SCIENTIFIC DIVER NOTE PT IN BED AWAKE. NO DISTRESS OR DISCOMFORT NOTED. DENIES PAIN. IVF NS INFUSING AT 100 ML/HR. NO S/S OF INFILTRATION NOTED. ON TELE SR WITH 1ST DEGREE AV BLOCK HR 78. ALL NEEDS ATTENDED. SIDE RAILS UP X2 AND CALL LIGHT WITHIN REACH. WILL ENDORSE TO DAY SHIFT NURSE FOR CONTINUE TO CARE.
[2018-04-02] MEDS: IV NS 0.9% 1,000 ML IV PRN ×2 (06:38→16:58)
--- NOTE | 2018-04-02 07:10 | NUR ---
HOG DRIVER OPENING NOTE RECEIVED REPORT FROM PM NURSE.PT IN BED AWAKE. NO SOB NO DISTRESS OR DISCOMFORT NOTED. AXOX4.TELE MONITOR SR WITH FIRST DEGREE AV BLOCK HR 78. IVF NS INFUSING AT 100 ML/HR. NO S/S OF INFILTRATION NOTED.BED IS LOW AND IN LOCKED POSITION. SIDE RAILS UP X3 AND CALL LIGHT WITHIN REACH. WAITING FOR SWALLOW EVAL.WILL CONTINUE TO MONITOR.
[2018-04-02 08:00] VITALS: BP 124/67
[2018-04-02] MEDS: DOCUSATE SODIUM LIQ 100 MG/10 ML UDC PO SCH ×2 (08:39→17:04)
[2018-04-02] MEDS: LISINOPRIL (20MG) 20 MG TABLET PO SCH (08:39)
[2018-04-02] MEDS: PSYLLIUM SEED 1 PKT PACKET PO SCH (08:39)
[2018-04-02] MEDS: DULOXETINE HCL 30 MG CAPSULE.DR PO SCH (08:40)
[2018-04-02] MEDS: AMLODIPINE BESYLATE 10 MG TABLET PO SCH (08:40)
[2018-04-02] MEDS: LEVETIRACETAM SOL (5 ML) 100 MG/ML UDC PO SCH ×2 (08:40→21:27)
[2018-04-02] MEDS: ACETAMINOPHEN 325 MG TABLET PO PRN (08:40)
[2018-04-02] MEDS ORDERED: DOCUSATE SODIUM 250 MG CAPSULE PO SCH (09:00)
[2018-04-02 11:55] LABS: BASOPHILS % (AUTO) 0.4 % (0.0-2.0); EOSINOPHILS % (AUTO) 0.4 % (0.0-6.0); HEMATOCRIT 29 % (33-45); HEMOGLOBIN 9.4 g/dL (11.5-14.8); LYMPHOCYTES # (AUTO) 1.8 /CMM (0.8-4.8); LYMPHOCYTES % (AUTO) 17.7 % (20.0-44.0); MEAN CORPUSCULAR HGB CONC 32 g/dl (31.0-36.0); MEAN CORPUSCULAR VOLUME 87 fL (82-100); MONOCYTES # (AUTO) 0.7 /CMM (0.1-1.30); MONOCYTES % (AUTO) 7.3 % (2.0-12.0); NEUTROPHILS # (AUTO) 7.5 /CMM (1.8-8.9); NEUTROPHILS % (AUTO) 74.2 % (43.0-81.0); PLATELET COUNT (AUTO) 499 /CMM (150-450); RED BLOOD CELL COUNT(AUTO) 3.35 MIL/uL (4.0-5.2); WHITE BLOOD COUNT (AUTO) 10.2 K/uL (4.3-11.0)
[2018-04-02 12:00] VITALS: BP 103/60
[2018-04-02] MEDS ORDERED: HYDROCORTISONE CR 30 GM TUBE RC PRN (12:00)
[2018-04-02 12:02] LABS: CALCIUM, SERUM 8.5 mg/dL (8.5-10.1); CARBON DIOXIDE 22 mmol/L (21-32); CHLORIDE 104 mmol/L (98-107); CREATININE 0.6 mg/dL (0.6-1.3); GLUCOSE 100 mg/dL (74-106); POTASSIUM 3.5 mmol/L (3.5-5.1); SODIUM SERUM 138 mmol/L (136-145); UREA NITROGEN, BLOOD 9 mg/dL (7-18)
--- NOTE | 2018-04-02 15:00 | NUR ---
MS RN NOTE SEEN BY CLIFFORD MEANS ,UPDATED ABOUT PATIENT CONDITION,WILL F/U WITH NEURO CONSULT.
[2018-04-02 16:00] VITALS: BP 117/60
--- NOTE | 2018-04-02 16:10 | NUR ---
Patient resides at [facility] [phone] currently on 7days bedhold. Requires assistance with adl's. Current dc plan is to return to SNF once discharge. Addendum: 04/02/18 at 1611 by CAREN SOUTH RN Amended: Links added.
[2018-04-02] MEDS ORDERED: Z GUARD REMEDY 2 OZ OINT TP PRN (18:00)
--- NOTE | 2018-04-02 19:28 | NUR ---
SENIOR PRODUCTION MANAGER CLOSING NOTE .PT IN BED AWAKE. NO SOB NO DISTRESS OR DISCOMFORT NOTED. AXOX4.IVF NS INFUSING AT 100 ML/HR. NO S/S OF INFILTRATION NOTED.BED IS LOW AND IN LOCKED POSITION. SIDE RAILS UP X3 AND CALL LIGHT WITHIN REACH. ENDORSED TO PM NURSE FOR MIKEY.
[2018-04-02] MEDS: CEFTRIAXONE 1 G in IV D5W 50 ML IV SCH (19:52)
[2018-04-02 20:00] VITALS: BP 107/65
--- NOTE | 2018-04-02 20:00 | NUR ---
MS RN NOTE PT IN BED AWAKE, FALLING ASLEEP. NO SOB, NO DISTRESS OR DISCOMFORT NOTED. DENIES PAIN. IVF NS @100 ML/HR INFUSING WELL, NO S/S OF INFILTRATION NOTED. SIDE RAILS UP X 2 AND CALL LIGHT WITHIN REACH. VSS. CONTINUE TO MONITOR HER.
[2018-04-02] MEDS: ENOXAPARIN SODIUM 40 MG/0.4 ML DISP.SYRIN SQ SCH (21:29)
[2018-04-02] MEDS ORDERED: ATORVASTATIN 10 MG TABLET PO SCH (22:00)
[2018-04-03] MEDS: IV NS 0.9% 1,000 ML IV PRN (02:46)
[2018-04-03 04:00] VITALS: BP_SYST 123; BP_DIAS 69; BP_DIAS 83
[2018-04-03 06:40] LABS: BASOPHILS % (AUTO) 0.3 % (0.0-2.0); EOSINOPHILS % (AUTO) 0.6 % (0.0-6.0); HEMATOCRIT 30 % (33-45); HEMOGLOBIN 9.7 g/dL (11.5-14.8); LYMPHOCYTES # (AUTO) 2.2 /CMM (0.8-4.8); LYMPHOCYTES % (AUTO) 21.2 % (20.0-44.0); MEAN CORPUSCULAR HGB CONC 32 g/dl (31.0-36.0); MEAN CORPUSCULAR VOLUME 87 fL (82-100); MONOCYTES # (AUTO) 0.8 /CMM (0.1-1.30); MONOCYTES % (AUTO) 7.8 % (2.0-12.0); NEUTROPHILS # (AUTO) 7.2 /CMM (1.8-8.9); NEUTROPHILS % (AUTO) 70.1 % (43.0-81.0); PLATELET COUNT (AUTO) 537 /CMM (150-450); RED BLOOD CELL COUNT(AUTO) 3.48 MIL/uL (4.0-5.2); WHITE BLOOD COUNT (AUTO) 10.3 K/uL (4.3-11.0)
--- NOTE | 2018-04-03 06:41 | NUR ---
MS RN NOTE PT IN BED ASLEEP, AROUSABLE. NO DISTRESS OR DISCOMFORT NOTED. DENIES PAIN. IVF INFUSING WELL, NO S/S OF INFILTRATION NOTED. SIDE RAILS UP X 2 AND CALL LIGHT WITHIN REACH. WILL ENDORSE TO DAY SHIFT NURSE FOR CONTINUE TO CARE.
[2018-04-03 06:54] LABS: CALCIUM, SERUM 8.5 mg/dL (8.5-10.1); CARBON DIOXIDE 23 mmol/L (21-32); CHLORIDE 105 mmol/L (98-107); CREATININE 0.7 mg/dL (0.6-1.3); GLUCOSE 104 mg/dL (74-106); MAGNESIUM 1.6 mg/dL (1.8-2.4); PHOSPHORUS 2.9 mg/dL (2.5-4.9); SODIUM SERUM 139 mmol/L (136-145); UREA NITROGEN, BLOOD 7 mg/dL (7-18)
--- NOTE | 2018-04-03 07:10 | NUR ---
MS RN OPENING NOTE RECEIVED REPORT FROM PM NURSE.PT IN BED AWAKE. NO SOB NO DISTRESS OR DISCOMFORT NOTED. AXOX4. IVF NS INFUSING AT 100 ML/HR. NO S/S OF INFILTRATION NOTED.BED IS LOW AND IN LOCKED POSITION. SIDE RAILS UP X3 AND CALL LIGHT WITHIN REACH. .WILL CONTINUE TO MONITOR.
[2018-04-03 08:00] VITALS: BP 127/75
[2018-04-03] MEDS ORDERED: ASPIRIN 81 MG TAB.CHEW PO SCH (09:00)
[2018-04-03] MEDS ORDERED: LEVO750T21 PO (09:43)
[2018-04-03] MEDS ORDERED: ASPI-1169 PO (09:43)
[2018-04-03] MEDS ORDERED: ATOR10TA PO (09:43)
[2018-04-03] MEDS ORDERED: POTASSIUM CHLORIDE 20 MEQ TAB.PRT.SR PO ONE (10:00)
[2018-04-03] MEDS: LEVETIRACETAM SOL (5 ML) 100 MG/ML UDC PO SCH (10:00)
[2018-04-03] MEDS ORDERED: Magnesium 1GM/D5W 100ML PREMIX 100 ML IV SCH (10:00)
[2018-04-03] MEDS: PSYLLIUM SEED 1 PKT PACKET PO SCH (10:00)
[2018-04-03] MEDS: DULOXETINE HCL 30 MG CAPSULE.DR PO SCH (10:01)
[2018-04-03] MEDS: LISINOPRIL (20MG) 20 MG TABLET PO SCH (10:01)
[2018-04-03] MEDS: AMLODIPINE BESYLATE 10 MG TABLET PO SCH (10:01)
[2018-04-03] MEDS: DOCUSATE SODIUM 250 MG CAPSULE PO SCH ×2 (10:01→17:00)
--- NOTE | 2018-04-03 13:00 | NUR ---
MS RN NOTE SEEN BY CLIFFORD MEANS ,GOT NEW ORDER FOR DISCHARGE.SPOKE TO CASE CHALINO,PATIENT IS GOING TO [facility].
[2018-04-03 16:00] VITALS: BP_SYST 106; BP_SYST 119; BP_DIAS 40; BP_DIAS 89
[2018-04-03] MEDS: ACETAMINOPHEN 325 MG TABLET PO PRN (16:36)
[2018-04-03] MEDS ORDERED: IBUPROFEN 600 MG TABLET PO PRN (17:00)
--- NOTE | 2018-04-03 18:00 | NUR ---
MS RN NOTE PATIENT C/O PAIN IN THE L SHOULDER AND NECK.PRN TYLENOL GIVEN.CLIFFORD MEANS MADE AWARE.GOT NEW ORDER FOR IBUPROFEN.WILL CONTINUE TO MONITOR.
--- NOTE | 2018-04-03 18:28 | NUR ---
MS TASTE TESTER NOTE PATIENT DISCHARGED TO [facility] IN STABLE CONDITION.DENIED ANY PAIN .NO SOB NO DISTRESS NOTED.FAMILY NOTIFIED SPOKE TO SON.ALL BELONGINGS TAKEN BY PATIENT.EXIT CARE GIVEN.REPORT GIVEN TO EMT.NO NEED TO GIVE REPORT TO FACILITY PER WATER POLLUTION CONTROL TECHNICIAN LIANG.PATIENT WHEEL CHAIR UNABLE TO FIT IN THE AMBULANCE.LIANG MADE AWARE.OK TO LEAVE IN THE UNIT .WILL HAVE SOME ONE TO HEAD SCORER WHEEL CHAIR TOMORROW.ALL DISCHARGE PAPER WORK GIVEN. Addendum: 04/03/18 at 1957 by KESHAWN MCHUGH RN TIME [id number]
== END 2018-04-03 18:28 | DRG 101 ==
LOC: ER 14:17 → TELE1 17:11 → MEDSG1 04-02 16:43
PROVIDERS: ADMIT Nurse Practitioner Acute Care; ATTEND Nurse Practitioner Acute Care
DX: G40.909 Epilepsy, unspecified, not intractable, without status epilepticus (principal); N39.0 Urinary tract infection, site not specified; E44.0 Moderate protein-calorie malnutrition; E11.9 Type 2 diabetes mellitus without complications; D63.8 Anemia in other chronic diseases classified elsewhere; F03.90 Unspecified dementia, unspecified severity, without behavioral disturbance, psychotic disturbance, mood disturbance, and anxiety; F29 Unspecified psychosis not due to a substance or known physiological condition; E78.5 Hyperlipidemia, unspecified; I10 Essential (primary) hypertension; F32.9 Major depressive disorder, single episode, unspecified; M19.90 Unspecified osteoarthritis, unspecified site; L89.151 Pressure ulcer of sacral region, stage 1; L89.321 Pressure ulcer of left buttock, stage 1; L89.311 Pressure ulcer of right buttock, stage 1; L30.4 Erythema intertrigo; E78.00 Pure hypercholesterolemia, unspecified; I25.10 Atherosclerotic heart disease of native coronary artery without angina pectoris; M85.80 Other specified disorders of bone density and structure, unspecified site
CPT/HCPCS: 36415; 36600; 70450-TC; 70496-TC; 70498-TC; 71045-TC; 80048-TC; 80061-TC; 80305; 81000-TC; 82962-TC; 83735-TC; 84100-TC; 84484-TC; 85025-TC; 85730-TC; 86850-TC; 87081-TC; 87086-TC; 87186-TC; 92611-TC; G0378; J0696; J1650; J1953; J3475; J7030; J7050; J7060; Q9967